=== PATIENT | male | born 1965 | race African-American/Black ===

== ENCOUNTER 2020-10-02 23:37 | Inpatient (IN) ==
[2020-10-03] MEDS ORDERED: levoFLOXacin/D5W 750 MG/150 ML BAG IV STA (00:02)
[2020-10-03] MEDS ORDERED: SODIUM CHLORIDE 0.9% 1000ML 500 ML IV ONE (00:02)
[2020-10-03] MEDS ORDERED: VANCOMYCIN HCL 2,000 MG in SODIUM CHLORIDE 0.9% 500 ML IV ONE ×2 (00:02→17:00)
[2020-10-03] MEDS ORDERED: VANCOMYCIN CONSULT ACTIVE PRN ×2 (00:02→16:22)
[2020-10-03] MEDS ORDERED: LORazepam 0.5 MG/1 ML VIAL IV STA (00:15)
[2020-10-03] MEDS ORDERED: ACETAMINOPHEN 1000 MG/100 ML IV IV STA (00:15)
--- NOTE | 2020-10-03 00:24 | Emergency Department Note ---
Impression & Plan Osteomyelitis, Finger pain, Failure of outpatient treatment ED Provider Note NAME: CARLOS COLUNGA AGE: 54 SEX: M : 1965 ARRIVES VIA: Walk-In INFORMANT: [Patient] ED PROVIDER(S): [Jeremiah Saunders MD] CHIEF COMPLAINT: Finger pain HISTORY OF PRESENT ILLNESS: The patient is a 54-year-old male who fractured his left ring finger. He had surgery on the finger in July, 2 months ago. The patient states that the finger has become swollen and painful. He states that he was started on clindamycin for presumed osteomyelitis. He has been on the clindamycin for about 1-1/2 weeks. He did see infectious disease today and he was felt to be failing outpatient treatment. IV antibiotics were suggested. He was sent here for hospitalization. The ID specialist suggested vancomycin and Levaquin. The patient does complain of swelling and pain, the pain is moderate in s everity. He is very anxious about maybe losing his finger. He has a history of posttraumatic stress disorder. Patient is not diabetic, he does have some renal disease but he states, they are just following his laboratory numbers. He has no lung issues or coronary issues. He is willing to stay in the hospital for IV antibiotic therapy. He understands that he may have to have another operation on the finger. REVIEW OF SYSTEMS: See HPI for pertinent positives and negatives. A total of ten systems were reviewed and were otherwise negative. PMHx/PSHx: See Below SOCIAL HISTORY: See Below. PHYSICAL EXAM: GENERAL: Patient is in no acute distress. HEENT: No acute trauma, normocephalic atraumatic, mucous membranes moist, no nasal congestion, no scleral icterus. NECK: No stridor, no adenopathy, no meningismus, trachea is midline. LUNGS: Clear to auscultation bilaterally, no wheeze, no rhonchi, breath sounds equal. HEART: Without murmurs gallops or rubs, regular rate and rhythm. ABDOMEN: Soft, nontender, bowel sounds positive, no hernias, no peritonitis. EXTREMITIES: No cyanosis. The patient does have swelling and discomfort about the left fourth finger. The finger is flexed at the IP joint. There is some warmth. No drainage. The fifth finger is also deformed and flexed at the IP joint. NEUROLOGIC: Oriented x 3, no acute motor or sensory deficits, no focal weakness. SKIN: No rash, no jaundice, no diaphoresis. DIFFERENTIAL DIAGNOSIS: Osteomyelitis, failed outpatient treatment, cellulitis, sepsis, bacteremia, neurovascular compromise, abscess, among others. EMERGENCY DEPARTMENT COURSE/PROCEDURES: MEDICAL DECISION MAKING: There is no leukocytosis. A mild anemia was noted. There is a normal platelet count. No renal failure. The potassium was slightly low at 3.1. Covid testing is pending. On exam, the patient was not toxic or febrile. His left fourth finger was erythematous, tender and swollen. The patient received IV Ativan for anxiety. He was given IV Tylenol for pain. He received IV saline and IV Levaquin. He was initially ordered for IV vancomycin however, after discussing things with the hospitalist, this medication was canceled as the patient has a history of renal disease. Daptomycin IV was ordered in place of the vancomycin. The patient is here for hospitalization and IV antibiotic therapy. He has failed outpatient management. He may require repeat operating room intervention. He understands the seriousness of this diagnosis. I spoke with the case management team, the on-call hospitalist was consulted. Past Med/Surg History Medical History CRI (chronic renal insufficiency) Hypercholesterolemia Hypertension Social History Smoking Status: Current every day smoker Tobacco Type: Cigarettes Feels Safe at Home: Yes Allergies Allergies Allergy/AdvReac Type Severity Reaction Status Date / Time aspirin Allergy Unknown Verified 10/03/20 00:46 Cephalosporins Allergy Rash Verified 10/03/20 00:46 codeine Allergy Rash Verified 10/03/20 00:46 Penicillins Allergy Rash Verified 10/03/20 00:46 Home Meds Home Medications Medication Instructions Recorded Confirmed albuterol sulfate 2 puff INHALATION Q4 PRN 10/03/20 10/03/20 aripiprazole 20 mg PO DAILY 10/03/20 10/03/20 atorvastatin 40 mg PO DAILY 10/03/20 10/03/20 benztropine 0.5 mg PO BID 10/03/20 10/03/20 doxazosin [Cardura] 1 mg PO DAILY 10/03/20 10/03/20 duloxetine [Cymbalta] 30 mg PO BID 10/03/20 10/03/20 epinephrine [EpiPen] 0.3 mg IM UD PRN 10/03/20 10/03/20 folic acid 1 mg PO DAILY 10/03/20 10/03/20 hydrochlorothiazide 25 mg PO DAILY 10/03/20 10/03/20 levetiracetam 750 mg PO BID 10/03/20 10/03/20 melatonin 1 mg PO HS 10/03/20 10/03/20 melatonin 5 mg PO HS 10/03/20 10/03/20 metoprolol succinate 25 mg PO DAILY 10/03/20 10/03/20 pantoprazole 40 mg PO DAILY 10/03/20 10/03/20 prazosin 5 mg PO DAILY 10/03/20 10/03/20 quetiapine 50 mg PO BID 10/03/20 10/03/20 tamsulosin 0.4 mg PO DAILY 10/03/20 10/03/20 topiramate 200 mg PO BID 10/03/20 10/03/20 warfarin 10 mg PO DAILY 10/03/20 10/03/20 Results & Data (ED) Vital Signs Vital Signs - 24 hr 10/02/20 23:57 Temperature 37 C Temperature Source Temporal Artery Scan Pulse Rate 89 Respiratory Rate 18 Respiratory Effort / Characteristics Non-Labored Spontaneous Respiratory Depth Normal Blood Pressure 172/89 H Blood Pressure Mean 116 Pulse Oximetry 100 Oxygen Delivery Method Room Air Sepsis Recent Fever Within 48 Hours Yes Sepsis New/Unexplained Change in Mental Status N/A Sepsis Action Taken by Nursing No Action Required Home Medications Current Medication List: was personally reviewed by me Laboratory Data Attestation: I reviewed the patient's lab results. Result diagrams: 10/03/20 00:27 10/03/20 00:27 Lab Results 10/03/20 10/03/20 10/03/20 Range/Units 00:27 00:27 00:27 WBC 7.23 (4.8-10.8) K/uL RBC 4.12 L (4.7-6.1) M/uL Hgb 12.5 L (14.0-18.0) g/dL Hct 35.6 L (42-52) % MCV 86.4 (80-100) fL MCH 30.3 (25-34) pg MCHC 35.1 (32-36) g/dL RDW Std Deviation 45.1 (36.4-46.3) fL RDW Coeff of Lexi 14.5 (11.5-14.5) % Plt Count 277 (130-400) K/uL MPV 9.6 (7.4-10.4) fL Immature Gran % (Auto) 0.1 % Neut % (Auto) 66.1 % Lymph % (Auto) 21.4 % [place] % (Auto) 9.3 % Eos % (Auto) 3.0 % Baso % (Auto) 0.1 % Neut # (Auto) 4.77 (1.4-6.5) K/uL Lymph # (Auto) 1.55 (1.2-3.4) K/uL [place] # (Auto) 0.67 H (0.11-0.59) K/uL Eos # (Auto) 0.22 (0-0.5) K/uL Baso # (Auto) 0.01 (0-0.2) K/uL Immature Gran # (Auto) 0.01 (0.00-0.02) K/uL ESR 12 (0-20) mm/hr Sodium 145 (136-145) mmol/L Potassium 3.1 L (3.5-5.1) mmol/L Chloride 114 H (98-107) mmol/L Carbon Dioxide 27 (21-32) mmol/L Anion Gap 4.0 (3-11) BUN 18 (7-18) mg/dl Creatinine 1.28 (0.6-1.4) mg/dl Est Cr Clr Drug Dosing 66.7 ml/min Est GFR ( Amer) 73.6 ml/min Est GFR (Non-Af Amer) 63.5 ml/min BUN/Creatinine Ratio 13.8 (10-20) Glucose 89 (70-99) mg/dl Calcium 8.9 (8.5-10.1) mg/dl COVID-19 Eval Order 10/03/20 Range/Units 00:31 WBC (4.8-10.8) K/uL RBC (4.7-6.1) M/uL Hgb (14.0-18.0) g/dL Hct (42-52) % MCV (80-100) fL MCH (25-34) pg MCHC (32-36) g/dL RDW Std Deviation (36.4-46.3) fL RDW Coeff of Lexi (11.5-14.5) % Plt Count (130-400) K/uL MPV (7.4-10.4) fL Immature Gran % (Auto) % Neut % (Auto) % Lymph % (Auto) % [place] % (Auto) % Eos % (Auto) % Baso % (Auto) % Neut # (Auto) (1.4-6.5) K/uL Lymph # (Auto) (1.2-3.4) K/uL [place] # (Auto) (0.11-0.59) K/uL Eos # (Auto) (0-0.5) K/uL Baso # (Auto) (0-0.2) K/uL Immature Gran # (Auto) (0.00-0.02) K/uL ESR (0-20) mm/hr Sodium (136-145) mmol/L Potassium (3.5-5.1) mmol/L Chloride (98-107) mmol/L Carbon Dioxide (21-32) mmol/L Anion Gap (3-11) BUN (7-18) mg/dl Creatinine (0.6-1.4) mg/dl Est Cr Clr Drug Dosing ml/min Est GFR ( Amer) ml/min Est GFR (Non-Af Amer) ml/min BUN/Creatinine Ratio (10-20) Glucose (70-99) mg/dl Calcium (8.5-10.1) mg/dl COVID-19 Eval Order Covid19 at [facility] Administered Medications Levofloxacin/Dextrose (Levaquin/D5w) 750 mg in 150 mls @ 100 mls/hr IV NOW STA Stop: 10/03/20 01:31 Last Admin: 10/03/20 00:51 Dose: 100 mls/hr Documented by: [id number] Miscellaneous Information (Vancomycin Consult Active) 1 ea N/A UD PRN PRN Reason: Consult Stop: 11/02/20 00:01 Last Admin: 10/03/20 00:55 Dose: 1 ea Documented by: [id number] Discontinued Medications Acetaminophen (Acetaminophen 1000 Mg/100 Ml Iv) 1,000 mg IV NOW STA Stop: 10/03/20 00:16 Last Admin: 10/03/20 00:26 Dose: 1,000 mg Documented by: [id number] Vancomycin HCl 2,000 mg/ (Sodium Chloride) 540 mls @ 200 mls/hr IV NOW ONE Stop: 10/03/20 02:43 Last Infusion: 10/03/20 00:38 Dose: 0 mls/hr Documented by: [id number] Admin: 10/03/20 00:26 Dose: 200 mls/hr Documented by: [id number] Sodium Chloride (Nss 1000ml) 500 mls @ 999 mls/hr IV .Q31M ONE Stop: 10/03/20 00:32 Last Admin: 10/03/20 00:27 Dose: 999 mls/hr Documented by: [id number] Lorazepam (Ativan) 0.5 mg in 1 mls @ 1 mls/min IV NOW STA Stop: 10/03/20 00:16 Last Admin: 10/03/20 00:26 Dose: 1 mls/min Documented by: [id number] Discharge Plan Visit Data Chief Complaint: Finger Pain Stated Complaint: LEFT HAND FINGER PAIN SWELLING S/P SURGERY ED Provider: Jeremiah Saunders Discharge Problem: Osteomyelitis, Finger pain, Failure of outpatient treatment Patient Disposition: Admitted As Inpatient Condition: Fair Forms Stand Alone Forms: My [facility] Prescriptions Prescriptions: No Action atorvastatin 40 mg tablet 40 mg PO DAILY RF: 0 doxazosin [Cardura] 1 mg tablet 1 mg PO DAILY RF: 0 pantoprazole 40 mg tablet,delayed release (DR/EC) 40 mg PO DAILY RF: 0 folic acid 1 mg tablet 1 mg PO DAILY RF: 0 aripiprazole 20 mg tablet 20 mg PO DAILY RF: 0 prazosin 5 mg capsule 5 mg PO DAILY RF: 0 levetiracetam 750 mg tablet 750 mg PO BID RF: 0 warfarin 10 mg tablet 10 mg PO DAILY RF: 0 tamsulosin 0.4 mg capsule 0.4 mg PO DAILY RF: 0 topiramate 200 mg tablet 200 mg PO BID RF: 0 hydrochlorothiazide 25 mg tablet 25 mg PO DAILY RF: 0 metoprolol succinate 25 mg tablet extended release 24 hr 25 mg PO DAILY RF: 0 albuterol sulfate 90 mcg/actuation HFA aerosol inhaler 2 puff INHALATION Q4 PRN (Reason: Wheezing) RF: 0 melatonin 1 mg Tablet 1 mg PO HS RF: 0 quetiapine 50 mg tablet 50 mg PO BID RF: 0 melatonin 5 mg Tablet 5 mg PO HS RF: 0 benztropine 0.5 mg tablet 0.5 mg PO BID RF: 0 epinephrine [EpiPen] 0.3 mg/0.3 mL Auto-Injector 0.3 mg IM UD PRN (Reason: Anaphylaxis) RF: 0 duloxetine [Cymbalta] 30 mg capsule,delayed release(DR/EC) 30 mg PO BID RF: 0 Referrals Referrals: Sacha Storm [Primary Care Provider] - Discharge Problem: Osteomyelitis Qualifiers: Osteomyelitis type: unspecified type Osteomyelitis location: hand Laterality: left Qualified Code(s): M86.9 - Osteomyelitis, unspecified Finger pain Qualifiers: Laterality: left Qualified Code(s): M79.645 - Pain in left finger(s)
[2020-10-03] MEDS ORDERED: DAPTOmycin 450 MG in SYRINGE 0 ML IV ONE (00:34)
[2020-10-03 00:38] LABS: Basophils # (auto) 0.01 K/uL (0-0.2); Basophils % (auto) 0.1 %; Eosinophils # (auto) 0.22 K/uL (0-0.5); Hematocrit (blood only) 35.6 % (42-52); Hemoglobin 12.5 g/dL (14.0-18.0); Immature Granulocytes # (auto) 0.01 K/uL (0.00-0.02); Immature Granulocytes % (auto) 0.1 %; Lymphocytes # (auto) 1.55 K/uL (1.2-3.4); Lymphocytes % (auto) 21.4 %; Mean Corpuscular Hemoglobin 30.3 pg (25-34); Mean Corpuscular Hgb Conc 35.1 g/dL (32-36); Mean Corpuscular Volume 86.4 fL (80-100); Mean Platelet Volume 9.6 fL (7.4-10.4); Monocytes # (auto) 0.67 K/uL (0.11-0.59); Monocytes % (auto) 9.3 %; Neutrophils # (auto) 4.77 K/uL (1.4-6.5); Neutrophils % (auto) 66.1 %; Platelet Count 277 K/uL (130-400); RDW Coefficient of Variation 14.5 % (11.5-14.5); RDW Standard Deviation 45.1 fL (36.4-46.3); Red Blood Count 4.12 M/uL (4.7-6.1); White Blood Count 7.23 K/uL (4.8-10.8)
[2020-10-03 01:04] LABS: BUN Creatinine Ratio 13.8 (10-20); Calcium 8.9 mg/dl (8.5-10.1); Creatinine Clr Calc Pharmacy 66.7 ml/min; Est GFR (African American) 73.6 ml/min; Est GFR (Non-African American) 63.5 ml/min; Potassium 3.1 mmol/L (3.5-5.1)
[2020-10-03 02:01] LABS: INR 1.1 (0.9-1.1); Partial Thromboplastin Ratio 0.9; Partial Thromboplastin Time 22.8 Seconds (21.0-31.0); Prothrombin Time 11.2 Seconds (9.0-12.0)
--- NOTE | 2020-10-03 02:07 | History & Physical Report ---
Date of Service October 03, 2020 Assessment & Plan (1) Osteomyelitis: Mr. Ram is a 54 yo gentleman who is admitted for failed outpatient management of suspected left ring finger infection suspicious for osteomyelitis. - patient afebrile, hemodynamically stable. WBC normal, blood cultures drawn. - ortho consult placed - I will order an Xray of the left finger in the AM - additional imaging per ortho (MRI) - continue IV levaquin and daptomycin (although renal function is acceptable for vanco, this will require q12 hour dosing in the future, while Dapto is once). - If osteomyelitis is confirmed, patient will likely need 6 weeks of IV antibiotics - given his history of IV drug abuse, he will not likely be a good candidate for a line - I suspect the best method would be to set him up with an outpatient infusion center (perhaps closer to his home) where he can commute to each day for IV abx (2) Hypertension: - continue home HCTZ and metoprolol (3) Hypercholesterolemia: - continue home atorvastatin (4) Seizure disorder: - continue home dose Keppra and Topamax (5) PTSD (post-traumatic stress disorder): - continue prazosin qhs (6) Protein C deficiency: - chronically anticoagulated on Warfarin (7) Hx of pulmonary embolus: - chronically anticoagulated on warfarin (8) RUDDY (generalized anxiety disorder): - continue home dose cymbalta (9) BPH (benign prostatic hyperplasia): - continue home flomax DVT ppx: On coumadin Dispo: Med surg Diet: Heart healthy Code: Full History of Present Illness Primary Care Provider: Sacha Storm Mr. Ram is a 54 yo M who was referred to the [facility] ED for failed outpatient management of an infection of the left ring finger. In July 2020 while in rehab for substance abuse (injection drug use, meth and cocaine), Mr. Ram slipped on the bathroom floor and broke his left ring finger in an attempt to brace his fall. He underwent surgical repair by Dr. Jacinto at [facility] on 07/13/20. He was later placed in a hard cast because his joint was exposed to too much mobility at this first post-operative visit. Two weeks ago, Mr. Ram noted increased swelling and discomfort of the finger - he was started on clindamycin 7-10 days ago for a wound infection. Despite being on the clinda, the finger has continued to remain swollen and painful. He has seen an ID specialist at [facility] who referred him here for Iv antibiotics due to a suspicion for osteomyelitis - he recommend Levaquin and Vancomycin. No records of imaging of the left ring finger from [facility] were received. Patient's is present at bedside and provides the following history: he has struggled with IV drug use for nearly 30 years. He has been talking about going back rehab in an effort to get clean. She can be reached at [phone]. He is a has follows with the [facility] system, but [facility]. He is a current tobacco smoker. In the ED, he was afebrile with a normal HR. His WBC was normal. Blood cultures were drawn. ESR not elevated. K low at 3.1. GFR at 73. He was started on IV Levaquin and Daptomycin. Allergies Allergy/AdvReac Type Severity Reaction Status Date / Time aspirin Allergy Unknown Verified 10/03/20 00:46 Cephalosporins Allergy Rash Verified 10/03/20 00:46 codeine Allergy Rash Verified 10/03/20 00:46 Penicillins Allergy Rash Verified 10/03/20 00:46 Home Medications Medication Instructions Recorded Confirmed Type albuterol sulfate 2 puff INHALATION Q4 PRN 10/03/20 10/03/20 History aripiprazole 20 mg PO DAILY 10/03/20 10/03/20 History atorvastatin 40 mg PO DAILY 10/03/20 10/03/20 History benztropine 0.5 mg PO BID 10/03/20 10/03/20 History doxazosin [Cardura] 1 mg PO DAILY 10/03/20 10/03/20 History duloxetine [Cymbalta] 30 mg PO BID 10/03/20 10/03/20 History epinephrine [EpiPen] 0.3 mg IM UD PRN 10/03/20 10/03/20 History folic acid 1 mg PO DAILY 10/03/20 10/03/20 History hydrochlorothiazide 25 mg PO DAILY 10/03/20 10/03/20 History levetiracetam 750 mg PO BID 10/03/20 10/03/20 History melatonin 1 mg PO HS 10/03/20 10/03/20 History melatonin 5 mg PO HS 10/03/20 10/03/20 History metoprolol succinate 25 mg PO DAILY 10/03/20 10/03/20 History pantoprazole 40 mg PO DAILY 10/03/20 10/03/20 History prazosin 5 mg PO DAILY 10/03/20 10/03/20 History quetiapine 50 mg PO BID 10/03/20 10/03/20 History tamsulosin 0.4 mg PO DAILY 10/03/20 10/03/20 History topiramate 200 mg PO BID 10/03/20 10/03/20 History warfarin 10 mg PO DAILY 10/03/20 10/03/20 History Past Med/Surg History Medical History CRI (chronic renal insufficiency) Hypercholesterolemia Hypertension Social History Smoking Status: Current every day smoker Tobacco Type: Cigarettes Cigarettes Per Day: 5; Second Hand Exposure: No; Do You Dip or Chew Tobacco: No; Tobacco Cessation Education Requested by Patient: No Hx Alcohol Use: No Hx Substance Use: Yes Prescribed Medications: Marijuana Non-Prescribed Medications: Crack / Cocaine and Methamphetamines Non-Prescribed Medications Comment: Cocaine 2018, Methamphetamine 1 week prior from 10/03/20 Last Used Substance Other:: 3 years ago Preferred Language: Italian Director Of Informatics Required: No Beliefs That Will Affect Care: None Current Living Situation: Spouse Current Living Situation Comment: Lives with at home Feels Safe at Home: Yes Safety Concerns: Feels Safe At This Time Assistive Devices: None Review of Systems Review of Systems: All systems reviewed & are unremarkable except as noted in HPI & below Physical Exam Constitutional: WD/WN, vitals as above no acute distress Eyes: + anicteric sclerae ENMT: external ear and nose normal, oropharynx normal Neck: normal visual inspection and trachea midline Respiratory: normal respiratory effort, lungs clear to auscultation no cough Cardiovascular: RRR, no murmur, no edema Heart Sounds: normal S1 and normal S2 Gastrointestinal (Abdomen): normal bowel sounds, soft, nontender, no hepatosplenomegaly Musculoskeletal: + left ring finger is swollen, not erythematous. Surgical incision present, No drainage. flexed at PIP joint Skin: no rashes, warm and dry Results & Data Results & Data ([facility]) Vital Signs (Past 12 Hours) Vital Signs Temp Pulse Pulse Resp BP BP Pulse Ox 10/03/20 01:57 95 H 18 149/75 H 99 10/03/20 01:24 99 H 18 155/89 H 99 10/02/20 23:57 37 C 89 18 172/89 H 100 Supervising Physician Co-Signing Physician Notes Attending addendum: I have physically seen this patient, have supervised the medical residents activities, and agree with the H&P unless as otherwise noted. Assessment and Plan: Left ring finger infection/osteomyelitis/failure of outpatient treatment- Referred to the ED by infectious disease Placed on vancomycin IV and Levaquin IV Consult orthopedic surgery N.p.o. after midnight Hypertension- Continue metoprolol Hold HCTZ Hypercholesterolemia- Continue atorvastatin Seizure disorder- Continue Keppra and Topamax PTSD/anxiety- Continue prazosin and Cymbalta History of pulmonary embolism- Hold warfarin overnight in anticipation of potential procedure Remaining orders and notations as noted Resident Activity Tracking Resident Involvement: Resident Care Provided Care Provided: Adult Hospital Medicine (1) Osteomyelitis Laterality: left Osteomyelitis location: hand Osteomyelitis type: unspecified type Qualified Code(s): M86.9 - Osteomyelitis, unspecified
[2020-10-03] MEDS ORDERED: MELATONIN 3 MG TAB PO PRN (02:28)
[2020-10-03] MEDS ORDERED: ONDANSETRON INJ 2 MG/ML 2 ML VIAL IV PRN (02:28)
[2020-10-03] MEDS ORDERED: ALBUTEROL HFA 8 GM INHALER INH PRN (02:28)
[2020-10-03] MEDS ORDERED: POLYETHYLENE (MIRALAX) 17 GM PACK PO PRN (02:28)
[2020-10-03] MEDS ORDERED: POTASSIUM CHLORIDE CRTAB 20 MEQ TABCR PO STA ×2 (02:31→09:24)
[2020-10-03] MEDS ORDERED: EPINEPHrine INJ 1 MG/ML AMP IM PRN (03:22)
--- NOTE | 2020-10-03 08:22 | Hospitalist Progress Note ---
Date of Service October 03, 2020 Assessment & Plan (1) Osteomyelitis: Patient is a 54 year old male with PMHx PTSD, Seizure Disorder, Protein C Deficiency on warfarin, RUDDY, BPH, Hypercholesterolemia, HTN, that presented as a transfer from [facility] for outpatient failure of treatment of L hand 4th digit cellulitis, now with suspected osteomyelitis. Osteomyelitis of L hand 4th digit -XR of hand and finger with lytic lesions concerning for and consistent with o steomyelitis -Started initially on IV Levaquin and Daptomycin on admission -Called and discussed with patient's ID Physician at [facility] (Dr. David ) who recommended switching patient to Vancomycin 15-20mg/kg trough in addition to Ceftriaxone 2g QD -Can also consider Telavancin and Ceftriaxone if will be covered -Recommended discontinuing Daptomycin as patient's CPK was elevated at 1237 from previous labs. -Ortho Consulted -No plan for surgical intervention at this time, rec continuing IV antibiotics -No need for MRI at this time -Will begin discussing in regards to discharge. As patient will unlikely be accepted to a SNF or similar facility primarily for treatment and PICC placement is less favorable due to hx of drug abuse, will likely need set up for daily MTU at [place] for treatment. -[place] would be if Vancomycin trough can be dosed at QD in addition to the Ceftriaxone QD dosing for 1 trip/day -If unable to dose for daily Vanco, will see if Telavancin is coverable. -Discussed with patient who feels that he would be able to make daily trips to MTU for treatment Protein C Deficiency -With history of PE -Chronically on Warfarin 10mg QD -INR today at 1.1 prior to warfarin administration -Will draw for INR in AM and adjust accordingly for INR goal 2-3 Seizure Disorder -Continue home Keppra and Topamax PTSD -Continue home Prazosin -Continue Abilify -Continue Seroquel HTN -Continue HCTZ and Metoprolol Hypercholesterolemia -Will hold Atorvastatin at this time due to elevated CPK RUDDY -Continue Cymbalta BPH -Continue Flomax Dispo: Med/Surg for IV antibiotics and discharge planning FEN: HH diet DVT: Warfarin, if unable to reach therapeutic states in the next 2-3 days will bridge with lovenox Code: Full (2) PTSD (post-traumatic stress disorder): (3) Protein C deficiency: (4) Hypertension: (5) Hypercholesterolemia: (6) Seizure disorder: (7) RUDDY (generalized anxiety disorder): (8) BPH (benign prostatic hyperplasia): Admission and Anticipated Discharge Date Admission Date: October 03, 2020 Supervising Physician Co-Signing Physician Notes I personally examined the patient and verified all richardson points of history and exam, discussed case, and agree with decision making with Dr Hoffmann. Sleeping/restingawakens. Denies any new or worse pain, but it seems like his finger feels about the same. Dr. Hoffmann has discussed the case with the patient's infectious disease doctor. Vitals noted, in general he is sleeping comfortably but easily awoken no distress. His finger is quite swollen a few sutures appear to be in place, there is no tracking erythema or expressible exudate. Finger osteomyelitiscontinue current antibiotics, work on discharge planning. Orthopedic and infectious disease input appreciated. Otherwise as above Subjective Patient evaluated at the bedside this AM. Patient noting that over all he was feeling okay, though was still experiencing pressure and pain in his L hand ring finger. He notes that he has had issues with it since breaking it and having it repaired 07/13/20. He agrees that he has been on clindamycin for the past 2 weeks with minimal improvements. Discussed with patient about drug use at which he adamantly denies any IV drug use. He does note that he has been using methamphetamines and cocaine for almost 24 years. States his last cocaine use was 3 years ago and last methamphetamine use 1 week ago. Patient denies any NVD, SOB, chest pain, fever, chills, abdominal pain. Called and discussed with patient's who agrees that she does not believe the patient utilizes IV drugs. She agrees that he is an avid user of cocaine and methamphetamines and has been to rehab multiple times, the most recent in August at the [facility]. Called and discussed in regards to treatment for patient with his Infectious Disease physician Dr. David ([facility]). Dr. David noted that he had been in discussions with the patient for possible placement at a SNF or similar facility as he would require IV antibiotics for 6-8 weeks for treatment of his osteomyelitis, but was hesitant to place a PICC due to patient's drug use history in addition to patient's uncertainty in regards to presenting to an MTU unit for administration of the antibiotic. Review of Systems Review of Systems: All systems reviewed & are unremarkable except as noted in Subjective Physical Exam Constitutional: WD/WN, vitals as above ENMT: external ear and nose normal, oropharynx normal Respiratory: normal respiratory effort, lungs clear to auscultation Cardiovascular: RRR, no murmur, no edema Gastrointestinal (Abdomen): normal bowel sounds, soft, nontender, no hepatosplenomegaly Musculoskeletal: L hand 4th digit moderately swollen at the middle to distal phalanx. Palpation of the finger illicits slight pain, deep per patient. No drainage notable. ROM limited due to recent repair and pinning. No tracking noted. Results & Data Results & Data ([facility]) Vital Signs (Past 12 Hours) Vital Signs Temp Pulse Pulse Resp BP BP Pulse Ox 10/03/20 07:26 36.5 C 75 18 153/101 H 100 10/03/20 02:25 36.4 C L 83 16 143/85 H 100 10/03/20 01:57 95 H 18 149/75 H 99 10/03/20 01:24 99 H 18 155/89 H 99 10/02/20 23:57 37 C 89 18 172/89 H 100 Resident Activity Tracking Resident Involvement: Resident Care Provided Care Provided: Adult Hospital Medicine (1) Osteomyelitis Laterality: left Osteomyelitis location: hand Osteomyelitis type: u nspecified type Qualified Code(s): M86.9 - Osteomyelitis, unspecified
--- NOTE | 2020-10-03 08:23 | XRay Report ---
Left fourth finger 3 VIEWS CLINICAL HISTORY: concern for osteomyelitis, left ring finger COMPARISON: None. DISCUSSION: There are postsurgical changes of a [id number] band arthrodesis of the proximal inte rphalangeal joint. There is pronounced overlying soft tissue swelling. There are bony erosive changes present, and osteomyelitis cannot be excluded. There is also a small bony erosion at the base of the proximal phalanx on the ulnar side. IMPRESSION: 1. Postsurgical changes of a proximal interphalangeal joint fusion with a [id number] suture. 2. Pronounced overlying soft tissue edema 3. Periostitis and bony erosive changes. This could be secondary to hardware loosening and abnormal m otion at the joint, or osteomyelitis. ACT 112: Negative or not required by law. Electronically signed by: Pavel Nevarez M.D. 10/03/2020 8:22 AM
[2020-10-03] MEDS: ARIPiprazole 10 MG TAB PO SCH (08:24)
[2020-10-03] MEDS: PANTOprazole 40 MG TAB PO SCH (08:24)
[2020-10-03] MEDS: ATORVASTATIN 40 MG TAB PO SCH (08:25)
[2020-10-03] MEDS: METOPROLOL SUCC 25MG EXT REL TAB PO SCH (08:25)
[2020-10-03] MEDS: TOPIRAMATE 100 MG TAB PO SCH ×2 (08:25→20:02)
[2020-10-03] MEDS: PRAZOSIN HCL 1 MG CAP PO SCH (08:25)
[2020-10-03] MEDS: levETIRAcetam 250 MG TAB PO SCH ×2 (08:26→20:01)
[2020-10-03] MEDS: TAMSULOSIN HCL 0.4 MG CAP PO SCH (08:26)
[2020-10-03] MEDS: QUEtiapine FUMARATE 25 MG TABLET PO SCH ×2 (08:26→20:01)
[2020-10-03] MEDS: DULoxetine HCL 30 MG CAP PO SCH ×2 (08:27→20:02)
[2020-10-03] MEDS: FOLIC ACID 1 MG TAB PO SCH (08:27)
[2020-10-03] MEDS: BENZTROPINE MESYLATE 0.5 MG TAB PO SCH ×2 (08:28→20:02)
[2020-10-03] MEDS: DOXAZOSIN MESYLATE 1 MG TAB PO SCH (08:28)
[2020-10-03] MEDS: ACETAMINOPHEN 325 MG TAB PO PRN (08:52)
[2020-10-03] MEDS: hydroCHLOROthiazide 25 MG TAB PO SCH (09:55)
--- NOTE | 2020-10-03 14:25 | Orthopedic Consultation ---
Date of Consultation October 03, 2020 Assessment & Plan (1) Osteomyelitis: Likely osteomyelitis of the middle phalanx of the left fourth finger. I have reviewed the x-rays, which shows the past ORIF of the middle phalanx along with a lytic lesion in the distal portion of the middle phalanx. I have spoken to Dr. Jacinto today. He has been in contact with Dr. David from infectious disease in [place]. Plans at this time will be nonoperative. With the lytic lesion in the middle phalanx it appears consistent with osteomyelitis. MRI not planned currently. Plan will be to treat osteomyelitis with IV antibiotics at this point in time. History of Present Illness Reason for Consultation: Left fourth finger osteomyelitis Attending Physician: Ac Ramos DO History of Present Illness Patient is a 54-year-old -[place] male who in July while at a drug and alcohol rehab facility, he ended up slipping and falling onto the floor. He apparently held his hand out to brace his fall and sustained a fracture of the middle phalanx of the fourth finger. Dr. Jacinto saw the patient and did an ORIF of the fourth finger fracture. From the history, he was seen early on in his postop phase and was found that he had too much joint range of motion of the operative finger and was put in a cast. He began noticing increased pain over time in that finger. After an examination it was felt that he possibly had infection and was started on clindamycin. The finger continued to swell and continue to be somewhat painful. He was seen by an infectious disease specialist and do boys and was ultimately referred here for further treatment. He was admitted by the hospitalist service and started on IV antibiotics. Currently the patient is sleeping and is difficult to arouse. He does answer some questions appropriately but quickly goes back to sleep. Allergies Allergy/AdvReac Type Severity Reaction Status Date / Time aspirin Allergy Unknown Verified 10/03/20 00:46 Cephalosporins Allergy Rash Verified 10/03/20 00:46 codeine Allergy Rash Verified 10/03/20 00:46 Penicillins Allergy Rash Verified 10/03/20 00:46 Home Medications Medication Instructions Recorded Confirmed Type albuterol sulfate 2 puff INHALATION Q4 PRN 10/03/20 10/03/20 History aripiprazole 20 mg PO DAILY 10/03/20 10/03/20 History atorvastatin 40 mg PO DAILY 10/03/20 10/03/20 History benztropine 0.5 mg PO BID 10/03/20 10/03/20 History doxazosin [Cardura] 1 mg PO DAILY 10/03/20 10/03/20 History duloxetine [Cymbalta] 30 mg PO BID 10/03/20 10/03/20 History epinephrine [EpiPen] 0.3 mg IM UD PRN 10/03/20 10/03/20 History folic acid 1 mg PO DAILY 10/03/20 10/03/20 History hydrochlorothiazide 25 mg PO DAILY 10/03/20 10/03/20 History levetiracetam 750 mg PO BID 10/03/20 10/03/20 History melatonin 1 mg PO HS 10/03/20 10/03/20 History melatonin 5 mg PO HS 10/03/20 10/03/20 History metoprolol succinate 25 mg PO DAILY 10/03/20 10/03/20 History pantoprazole 40 mg PO DAILY 10/03/20 10/03/20 History prazosin 5 mg PO DAILY 10/03/20 10/03/20 History quetiapine 50 mg PO BID 10/03/20 10/03/20 History tamsulosin 0.4 mg PO DAILY 10/03/20 10/03/20 History topiramate 200 mg PO BID 10/03/20 10/03/20 History warfarin 10 mg PO DAILY 10/03/20 10/03/20 History Patient History Medical History CRI (chronic renal insufficiency) Hypercholesterolemia Hypertension Social History Smoking Status: Current every day smoker Tobacco Type: Cigarettes Cigarettes Per Day: 5; Second Hand Exposure: No; Do You Dip or Chew Tobacco: No; Tobacco Cessation Education Requested by Patient: No Hx Alcohol Use: No Hx Substance Use: Yes Prescribed Medications: Marijuana Non-Prescribed Medications: Crack / Cocaine and Methamphetamines Non-Prescribed Medications Comment: Cocaine 2018, Methamphetamine 1 week prior from 10/03/20 Last Used Substance Other:: 3 years ago Preferred Language: Malaysian Communication Ability: Effective Clam Picker Required: No Beliefs That Will Affect Care: None Current Living Situation: Spouse Current Living Situation Comment: Lives with at home Feels Safe at Home: Yes Safety Concerns: Feels Safe At This Time Assistive Devices: None Physical Exam Physical Exam: On examination, his left fourth finger is moderately swollen at the middle phalanx. I can palpate the finger at this time which causes him some discomfort. There is no drainage noted at this time. The finger does not feel overtly hot. Capillary refill is less than 2 seconds. Passive range of motion of the MP joint does not appear to be bothersome. He does have some limited PIP joint flexion secondary to swelling but does not seem to be painful. Results & Data ([facility]) Vital Signs (Past 12 Hours) Vital Signs Temp Pulse Resp BP Pulse Ox 10/03/20 07:26 36.5 C 75 18 153/101 H 100 10/03/20 02:25 36.4 C L 83 16 143/85 H 100 Diagnostic Findings Laboratory Results WBC 7.23 K/uL (4.8-10.8) 10/03/20 00:27 RBC 4.12 M/uL (4.7-6.1) L 10/03/20 00:27 Hgb 12.5 g/dL (14.0-18.0) L 10/03/20 00:27 Hct 35.6 % (42-52) L 10/03/20 00:27 MCV 86.4 fL (80-100) 10/03/20 00:27 MCH 30.3 pg (25-34) 10/03/20 00:27 MCHC 35.1 g/dL (32-36) 10/03/20 00:27 RDW Std Deviation 45.1 fL (36.4-46.3) 10/03/20 00:27 RDW Coeff of Lexi 14.5 % (11.5-14.5) 10/03/20 00:27 Plt Count 277 K/uL (130-400) 10/03/20 00:27 MPV 9.6 fL (7.4-10.4) 10/03/20 00:27 Immature Gran % (Auto) 0.1 % 10/03/20 00:27 Neut % (Auto) 66.1 % 10/03/20 00:27 Lymph % (Auto) 21.4 % 10/03/20 00:27 [place] % (Auto) 9.3 % 10/03/20 00:27 Eos % (Auto) 3.0 % 10/03/20 00:27 Baso % (Auto) 0.1 % 10/03/20 00:27 Neut # (Auto) 4.77 K/uL (1.4-6.5) 10/03/20 00: Lymph # (Auto) 1.55 K/uL (1.2-3.4) 10/03/20 00:27 [place] # (Auto) 0.67 K/uL (0.11-0.59) H 10/03/20 00:27 Eos # (Auto) 0.22 K/uL (0-0.5) 10/03/20 00: Baso # (Auto) 0.01 K/uL (0-0.2) 10/03/20 00:27 Immature Gran # (Auto) 0.01 K/uL (0.00-0.02) 10/03/20 00: ESR 12 mm/hr (0-20) 10/03/20 00: PT 11.2 Seconds (9.0-12.0) 10/03/20 00: INR 1.1 (0.9-1.1) 10/03/20 00: APTT 22.8 Seconds (21.0-31.0) 10/03/20 00: PTT Ratio 0.9 10/03/20 00: Sodium 145 mmol/L (136-145) 10/03/20 00: Potassium 3.1 mmol/L (3.5-5.1) L 10/03/20 00: Chloride 114 mmol/L (98-107) H 10/03/20 00: Carbon Dioxide 27 mmol/L (21-32) 10/03/20 00: Anion Gap 4.0 (3-11) 10/03/20 00: BUN 18 mg/dl (7-18) 10/03/20 00: Creatinine 1.28 mg/dl (0.6-1.4) 10/03/20 00: Est Cr Clr Drug Dosing 66.7 ml/min 10/03/20 00:27 Est GFR ( Amer) 73.6 ml/min 10/03/20 00:27 Est GFR (Non-Af Amer) 63.5 ml/min 10/03/20 00:27 BUN/Creatinine Ratio 13.8 (10-20) 10/03/20 00:27 Glucose 89 mg/dl (70-99) 10/03/20 00:27 Calcium 8.9 mg/dl (8.5-10.1) 10/03/20 00:27 COVID-19 Eval [address] Covid19 at [facility] 10/03/20 00:31 SARS-CoV-2 (PCR) NEGATIVE (Negative) 10/03/20 00:31 Hepatitis C Ab Screen Neg (Neg) 10/03/20 00:27 Impressions Finger X-Ray 10/03/20 03:04 Left fourth finger 3 VIEWS CLINICAL HISTORY: concern for osteomyelitis, left ring finger COMPARISON: None. DISCUSSION: There are postsurgical changes of a rgksqd-[id number]-qweia band arthrodesis of the proximal interphalangeal joint. There is pronounced overlying soft tissue swelling. There are bony erosive changes present, and osteomyelitis canno t be excluded. There is also a small bony erosion at the base of the proximal phalanx on the ulnar side. IMPRESSION: 1. Postsurgical changes of a proximal interphalangeal joint fusion with a figure -of-eight suture. 2. Pronounced overlying soft tissue edema 3. Periostitis and bony erosive changes. This could be secondary to hardware loosening and abnormal motion at the joint, or osteomyelitis. ACT 112: Negative or not required by law. Electronically signed by: Pavel Nevarez M.D. 10/03/2020 8:22 AM (1) Osteomyelitis Laterality: left Osteomyelitis location: hand Osteomyelitis type: unspecified type Qualified Code(s): M86.9 - Osteomyelitis, unspecified
[2020-10-03] MEDS: WARFARIN SOD 10 MG TAB PO SCH (16:08)
[2020-10-03] MEDS ORDERED: CEPHALEXIN 250 MG/5 ML PO ONE (16:19)
[2020-10-03] MEDS ORDERED: DAPTOmycin 450 MG in SYRINGE 0 ML IV SCH (20:00)
[2020-10-03 21:24] LABS: Amphetamines+Metham, Urine Pos (Neg); Barbiturates, Urine Neg (Neg); Benzodiazepine, Urine Neg (Neg); Cocaine, Urine Neg (Neg); MDMA (Ecstacy), Urine Neg (Neg); Methadone, Urine Neg (Neg); Opiate, Urine Neg (Neg); Phencyclidine, Urine Neg (Neg)
--- NOTE | 2020-10-03 21:26 | Billing Data ---
Date of Service October 03, 2020 Coding Level of Care Code 68058 Initial Inpt Care Lvl 3
[2020-10-03] MEDS ORDERED: levoFLOXacin/D5W 500 MG/100 ML BAG IV SCH (22:00)
[2020-10-04] MEDS: VANCOMYCIN HCL 1,250 MG in SODIUM CHLORIDE 0.9% 250 ML IV SCH ×2 (04:14→19:18)
[2020-10-04 06:23] LABS: Basophils # (auto) 0.01 K/uL (0-0.2); Basophils % (auto) 0.2 %; Eosinophils # (auto) 0.22 K/uL (0-0.5); Eosinophils % (auto) 4.3 %; Hematocrit (blood only) 36.6 % (42-52); Hemoglobin 12.4 g/dL (14.0-18.0); Immature Granulocytes # (auto) 0.01 K/uL (0.00-0.02); Immature Granulocytes % (auto) 0.2 %; Lymphocytes # (auto) 1.37 K/uL (1.2-3.4); Lymphocytes % (auto) 26.7 %; Mean Corpuscular Hemoglobin 30.4 pg (25-34); Mean Corpuscular Hgb Conc 33.9 g/dL (32-36); Mean Corpuscular Volume 89.7 fL (80-100); Mean Platelet Volume 9.7 fL (7.4-10.4); Monocytes # (auto) 0.53 K/uL (0.11-0.59); Monocytes % (auto) 10.3 %; Neutrophils % (auto) 58.3 %; Platelet Count 277 K/uL (130-400); RDW Coefficient of Variation 14.7 % (11.5-14.5); RDW Standard Deviation 48.1 fL (36.4-46.3); Red Blood Count 4.08 M/uL (4.7-6.1); White Blood Count 5.14 K/uL (4.8-10.8)
[2020-10-04 06:34] LABS: INR 1.2 (0.9-1.1); Prothrombin Time 11.7 Seconds (9.0-12.0)
[2020-10-04 07:04] LABS: BUN Creatinine Ratio 12.5 (10-20); Calcium 8.4 mg/dl (8.5-10.1); Creatinine Clr Calc Pharmacy 66.2 ml/min; Est GFR (African American) 72.9 ml/min; Est GFR (Non-African American) 62.9 ml/min; Potassium 3.7 mmol/L (3.5-5.1)
--- NOTE | 2020-10-04 07:09 | Hospitalist Progress Note ---
Date of Service October 04, 2020 Assessment & Plan (1) Osteomyelitis: Patient is a 54 year old male with PMHx PTSD, Seizure Disorder, Protein C Deficiency on warfarin, RUDDY, BPH, Hypercholesterolemia, HTN, that presented as a transfer from [facility] for outpatient failure of treatment of L hand 4th digit cellulitis, now with suspected osteomyelitis. Osteomyelitis of L hand 4th digit -XR of hand and finger with lytic lesions concerning for and consistent with o steomyelitis -Started initially on IV Levaquin and Daptomycin on admission -Called and discussed with patient's ID Physician at [place] (Dr. David ) who recommended switching patient to Vancomycin 15-20 trough in addition to Ceftriaxone 2g QD. Further recommendations from Dr. David as below which he recommended upon discharge: -Continue Vancomycin 15-20 trough, QD vs q12h dosed per pharmacy -Continue Rocephin 2g daily -Continue IV antibiotics for 6 total weeks, starting from admission of 10/03/20 -Start Keflex 500mg PO q6h upon completion of 6 weeks of IV antibiotics, discontinue pending discussion with ID Dr. David -Weekly CBC, CMP, Vancomycin trough -Follow up with Dr. David in 2 weeks after discharge -Can also consider Telavancin and Ceftriaxone if will be covered -Dr. David will assist with determining appropriate dosing should Telavancin be used. -Recommended discontinuing Daptomycin as patient's CPK was elevated at 1237 from previous labs. -Ortho Consulted -No plan for surgical intervention at this time, rec continuing IV antibiotics -No need for MRI at this time -Will begin discussing in regards to discharge. As patient will unlikely be accepted to a SNF or similar facility primarily for treatment and PICC placement is less favorable due to hx of drug abuse, will likely need set up for daily MTU at [place] for treatment. -[place] would be if Vancomycin trough can be dosed at QD in addition to the Ceftriaxone QD dosing for 1 trip/day -If unable to dose for daily Vanco, will see if Telavancin is coverable. -Discussed with patient who feels that he would be able to make daily trips to [facility] for treatment -Will attempt to find placement with [facility], case management assisting Protein C Deficiency -With history of PE -Chronically on Warfarin 10mg QD -INR today at 1.3 -Will draw for INR in AM and adjust accordingly for INR goal 2-3 Seizure Disorder -Continue home Keppra and Topamax PTSD -Continue home Prazosin -Continue Abilify -Continue Seroquel HTN -Continue HCTZ and Metoprolol Hypercholesterolemia -Will hold Atorvastatin at this time due to elevated CPK RUDDY -Continue Cymbalta BPH -Continue Flomax Dispo: Med/Surg for IV antibiotics and discharge planning FEN: HH diet DVT: Warfarin, if unable to reach therapeutic states in the next 2-3 days will bridge with lovenox Code: Full Admission and Anticipated Discharge Date Admission Date: October 03, 2020 Supervising Physician Co-Signing Physician Notes I personally examined the patient and verified all richardson points of history and exam, discussed case, and agree with decision making with Dr Hoffmann. Pain reasonable. Notes he would like placement for the 6 weeks of antibiotics. Case management has been working on different options. Vitals noted, no distress. His finger is quite swollen a few sutures appear to be in place, there is no tracking erythema or expressible exudate. Finger osteomyelitiscontinue IV antibiotics, case management is working on discharge planning. Orthopedic and infectious disease input appreciated. Otherwise as above Subjective Patient noting minimal change in regards to the pain in his L hand 4th digit. He continues to deny any fever, chills, SOB, chest pain, abdominal pain. States he would be agreeable to both SNF/Rehab placement vs daily transport to [facility] for treatment. Review of Systems Review of Systems: All systems reviewed & are unremarkable except as noted in Subjective Physical Exam Constitutional: WD/WN, vitals as above ENMT: external ear and nose normal, oropharynx normal Respiratory: normal respiratory effort, lungs clear to auscultation Cardiovascular: RRR, no murmur, no edema Gastrointestinal (Abdomen): normal bowel sounds, soft, nontender, no hepatosplenomegaly Musculoskeletal: L hand 4th digit moderately swollen at the middle to distal phalanx. Palpation of the finger illicit slight pain, deep per patient. No drainage notable. ROM limited due to recent repair and pinning. No tracking noted. Results & Data Results & Data ([facility]) Vital Signs (Past 12 Hours) Vital Signs Temp Pulse Resp BP Pulse Ox 10/03/20 23:56 36.5 C 71 20 142/72 H 99 Resident Activity Tracking Resident Involvement: Resident Care Provided Care Provided: Adult Hospital Medicine (1) Osteomyelitis Laterality: left Osteomyelitis location: hand Osteomyelitis type: unspecified type Qualified Code(s): M86.9 - Osteomyelitis, unspecified
[2020-10-04] MEDS: ACETAMINOPHEN 325 MG TAB PO PRN (07:50)
[2020-10-04] MEDS: DULoxetine HCL 30 MG CAP PO SCH ×2 (08:51→20:53)
[2020-10-04] MEDS: BENZTROPINE MESYLATE 0.5 MG TAB PO SCH ×2 (08:51→20:54)
[2020-10-04] MEDS: PRAZOSIN HCL 1 MG CAP PO SCH (08:51)
[2020-10-04] MEDS: DOXAZOSIN MESYLATE 1 MG TAB PO SCH (08:52)
[2020-10-04] MEDS: METOPROLOL SUCC 25MG EXT REL TAB PO SCH (08:52)
[2020-10-04] MEDS: levETIRAcetam 250 MG TAB PO SCH ×2 (08:52→21:15)
[2020-10-04] MEDS: TOPIRAMATE 100 MG TAB PO SCH ×2 (08:52→20:52)
[2020-10-04] MEDS: TAMSULOSIN HCL 0.4 MG CAP PO SCH (08:52)
[2020-10-04] MEDS: QUEtiapine FUMARATE 25 MG TABLET PO SCH ×2 (08:52→20:52)
[2020-10-04] MEDS: hydroCHLOROthiazide 25 MG TAB PO SCH (08:53)
[2020-10-04] MEDS: PANTOprazole 40 MG TAB PO SCH (08:53)
[2020-10-04] MEDS: ARIPiprazole 10 MG TAB PO SCH (08:54)
[2020-10-04] MEDS: FOLIC ACID 1 MG TAB PO SCH (08:54)
--- NOTE | 2020-10-04 12:48 | Orthopedic Progress Note ---
Date of Service October 04, 2020 Assessment & Plan (1) Osteomyelitis: Osteomyelitis left 4th middle phalanx post ORIF of Middle phalanx No op treatment at this time per Dr Jacinto. Continue IV antibx. Planning for outpt IV antibx. Admission and Anticipated Discharge Date Admission Date: October 03, 2020 Subjective Pt sleeping upon arrival into room. Easily awoken. No changes overnight. No new complainst or questions. Physical Exam Physical Exam: No changes with finger exam. Swelling continues with tenderness over the middle phalanx. No drainage noted. Results & Data ([facility]) Vital Signs (Past 12 Hours) Vital Signs Temp Pulse Resp BP Pulse Ox 10/04/20 07:40 36.8 C 78 20 154/75 H 98 (1) Osteomyelitis Laterality: left Osteomyelitis location: hand Osteomyelitis type: unspecified type Qualified Code(s): M86.9 - Osteomyelitis, unspecified
--- NOTE | 2020-10-04 16:57 | Progress Notes ---
DATE OF SERVICE: 10/04/2020 SUBJECTIVE: Nakul is seen at the bedside today. He verbalizes no new complaints. He notes appropriate amount of pain in the finger. OBJECTIVE: Left ring finger examination does show moderate swelling. He has no sinus tract. He has no drainage, no streaking erythema. He has supple motion of the MP joint. ASSESSMENT: 1. Status post left ring finger proximal interphalangeal arthrodesis. 2. Osteomyelitis of middle phalanx. PLAN: At this point in time, continue antibiotics intravenously as he has failed outpatient treatment. I do not see surgical indications at this point in time as we would like to retain the hardware if possible to allow for fusion. Dr. David from [facility] has been involved in his care with infectious disease. He is available for a telephone consultation with any questions. His recommendations are : vancomycin with pharmacy to target dose of a trough of 15 to 20. He recommended giving a single dose of Keflex 50 mg and if no allergic reaction occurs in 2 hours, then begin ceftriaxone 2 mg daily. He can be reached at area code [phone] if necessary. We will continue to follow intermittently from an orthopedic standpoint. Job ID: [id number] [facility]
[2020-10-04] MEDS: WARFARIN SOD 10 MG TAB PO SCH (19:17)
--- NOTE | 2020-10-04 19:57 | Billing Data ---
Date of Service October 04, 2020 Coding Level of Care Code 26446 Subseq Hosp Care Lvl 3
[2020-10-04] MEDS: cefTRIAXone SODIUM 2,000 MG in DEXTROSE 5% 50 ML IV SCH (20:53)
[2020-10-05] MEDS ORDERED: VANCOMYCIN TROUGH ONE (04:30)
[2020-10-05 04:46] LABS: INR 1.3 (0.9-1.1); Prothrombin Time 12.6 Seconds (9.0-12.0)
[2020-10-05] MEDS: VANCOMYCIN HCL 1,250 MG in SODIUM CHLORIDE 0.9% 250 ML IV SCH (05:01)
[2020-10-05] MEDS: DOXAZOSIN MESYLATE 1 MG TAB PO SCH (09:24)
[2020-10-05] MEDS: ARIPiprazole 10 MG TAB PO SCH (09:24)
[2020-10-05] MEDS: BENZTROPINE MESYLATE 0.5 MG TAB PO SCH ×2 (09:24→21:39)
[2020-10-05] MEDS: DULoxetine HCL 30 MG CAP PO SCH ×2 (09:25→21:39)
[2020-10-05] MEDS: FOLIC ACID 1 MG TAB PO SCH (09:25)
[2020-10-05] MEDS: levETIRAcetam 250 MG TAB PO SCH ×2 (09:25→21:40)
[2020-10-05] MEDS: METOPROLOL SUCC 25MG EXT REL TAB PO SCH (09:25)
[2020-10-05] MEDS: hydroCHLOROthiazide 25 MG TAB PO SCH (09:25)
[2020-10-05] MEDS: PRAZOSIN HCL 1 MG CAP PO SCH (09:26)
[2020-10-05] MEDS: PANTOprazole 40 MG TAB PO SCH (09:26)
[2020-10-05] MEDS: QUEtiapine FUMARATE 25 MG TABLET PO SCH ×2 (09:26→21:39)
[2020-10-05] MEDS: TAMSULOSIN HCL 0.4 MG CAP PO SCH (09:27)
[2020-10-05] MEDS: TOPIRAMATE 100 MG TAB PO SCH ×2 (09:27→21:39)
--- NOTE | 2020-10-05 12:53 | Hospitalist Progress Note ---
Date of Service October 05, 2020 Assessment & Plan (1) Osteomyelitis: Nakul Ram is a 54 year old male with PMHx PTSD, Seizure Disorder, Protein C Deficiency on warfarin, RUDDY, BPH, Hypercholesterolemia, HTN, that presented as a transfer from [facility] for outpatient failure of treatment of L hand 4th digit cellulitis, now with osteomyelitis. Osteomyelitis of L hand 4th digit: -XR of hand and finger with lytic lesions concerning for and consistent with osteomyelitis -Started initially on IV Levaquin and Daptomycin on admission -Called and discussed with patient's ID Physician at [place] (Dr. David: [phone]) who recommended switching patient to Vancomycin 15-20 trough in addition to Ceftriaxone 2g QD. Further recommendations from Dr. David as below which he recommended upon discharge: -Continue Vancomycin with goal of 15-20 trough -Continue Rocephin 2g daily -Continue IV antibiotics for 6 total weeks, starting from admission of 10/03/20 -Start Keflex 500mg PO q6h upon completion of 6 weeks of IV antibiotics, discontinue pending discussion with ID Dr. David -Weekly CBC, CMP, Vancomycin trough -Follow up with Dr. David in 2 weeks after discharge -Ortho Consulted -No plan for surgical intervention at this time, rec continuing IV antibiotics -Case management assisting with [place] services for continued infusions -will start topical voltaren for continued abdominal pain Protein C Deficiency: -With history of PE -Chronically on Warfarin 10mg QD -INR today at 1.3 -gave additional 2.5mg today, recheck in AM Seizure Disorder: -Continue home Keppra and Topamax PTSD: -Continue home Prazosin -Continue Abilify -Continue Seroquel HTN: -Continue HCTZ and Metoprolol Hypercholesterolemia: -Will hold Atorvastatin at this time due to elevated CPK RUDDY: -Continue Cymbalta BPH: -Continue Flomax Admission and Anticipated Discharge Date Admission Date: October 03, 2020 Supervising Physician Co-Signing Physician Notes I personally examined the patient and verified all richardson points of history and exam, discussed case, and agree with decision making with Dr Perez. Finger hurting a bit more. No other new findings otherwise. Case management working on disposition options. Vitals noted, no distress. His finger is quite swollen a few sutures appear to be in place, there is no tracking erythema or expressible exudate. Essentially examines identical to before although may be a little bit more tenderbut certainly no new erythema, no worsening edema, no fluctuance Finger osteomyelitiscontinue IV antibiotics, case management is working on discharge planning. Orthopedic and infectious disease input appreciated. Worsening and pain seems to be arthritic/inflammatory in nature, but not worse infection. 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 To that end we will try to institute what would hopefully be a plausible chronic management planinitiate diclofenac gel. Otherwise as above Subjective Patient noting minimal change in regards to the pain in his L hand 4th digit, feels like it has not improved as much as he was hoping for it to at this point. He continues to deny any fever, chills, SOB, chest pain, abdominal pain. Review of Systems Review of Systems: All systems reviewed & are unremarkable except as noted in Subjective Physical Exam Constitutional: WD/WN, vitals as above Eyes: PERRL, conjunctivae normal, anicteric sclerae Respiratory: normal respiratory effort, lungs clear to auscultation Auscultation: no crackles, no rales, no rhonchi and no wheezes Cardiovascular: Rate/Rhythm: regular rate and regular rhythm Heart Sounds: no gallop, no murmur and no cardiac rub Vessels: normal peripheral pulses; no JVD Extremities: no edema Gastrointestinal (Abdomen): Inspection/Auscultation: normal bowel sounds; abdomen not distended Percussion/Palpation: abdomen soft; abdomen nontender and no guarding Skin: L hand 4th digit moderately swollen at the middle to distal phalanx. Minimally tender to palpation. No drainage notable. ROM limited due to recent repair and pinning. No tracking noted. Neurologic: PERRL, EOMI, accommodation nl, no face palsy, no dysarthria CN's II-XI intact bilaterally and moves all extremities Psychiatric: Orientation: alert and oriented x 3 Results & Data Results & Data ([facility]) Vital Signs (Past 12 Hours) Vital Signs Temp Pulse Resp BP Pulse Ox 10/05/20 07:21 36.5 C 74 16 145/74 H 100 Laboratory Results 10/05/20 10/05/20 10/05/20 Range/Units 04:19 04:19 04:19 PT 12.6 H (9.0-12.0) Seconds INR 1.3 H (0.9-1.1) Creatinine 1.40 (0.6-1.4) mg/dl Est Cr Clr Drug Dosing 61.0 ml/min Est GFR ( Amer) 66.0 ml/min Est GFR (Non-Af Amer) 57.0 ml/min Vancomycin Trough 19.0 (See Comment) mcg/ml Medications Administered Current Inpatient Medications Acetaminophen (Acetaminophen 325 Mg Tab) 650 mg PO Q4H PRN PRN Reason: Pain or Fever Stop: 11/02/20 02:27 Last Admin: 10/04/20 07:50 Dose: 650 mg Documented by: Albuterol (Albuterol Hfa 8 Gm Inhaler) 2 puffs INH Q4 PRN PRN Reason: Wheezing Stop: 11/02/20 02:27 Aripiprazole (Aripiprazole 10 Mg Tab) 20 mg PO DAILY [facility] Stop: 11/02/20 08:59 Last Admin: 10/05/20 09:24 Dose: 20 mg Documented by: Atorvastatin Calcium (Atorvastatin 40 Mg Tab) 40 mg PO QAM [facility] Stop: 11/02/20 08:59 Last Admin: 10/03/20 08:25 Dose: 40 mg Documented by: Benztropine Mesylate (Benztropine Mesylate 0.5 Mg Tab) 0.5 mg PO BID [facility] Stop: 11/02/20 08:59 Last Admin: 10/05/20 09:24 Dose: 0.5 mg Documented by: Diclofenac Sodium (Diclofenac Sod 1% Gel 100 Gm Tube) 2 gm EXT QID [facility] Stop: 11/04/20 12:59 Doxazosin Mesylate (Doxazosin Mesylate 1 Mg Tab) 1 mg PO DAILY [facility] Stop: 11/02/20 08:59 Last Admin: 10/05/20 09:24 Dose: 1 mg Documented by: Duloxetine HCl (Duloxetine Hcl 30 Mg Cap) 30 mg PO BID [facility] Stop: 11/02/20 08:59 Last Admin: 10/05/20 09:25 Dose: 30 mg Documented by: Epinephrine HCl (Epinephrine Inj 1 Mg/Ml Amp) 0.3 mg IM UD PRN PRN Reason: Anaphylaxis Stop: 11/02/20 03:21 Folic Acid (Folic Acid 1 Mg Tab) 1 mg PO DAILY [facility] Stop: 11/02/20 08:59 Last Admin: 10/05/20 09:25 Dose: 1 mg Documented by: Hydrochlorothiazide (Hydrochlorothiazide 25 Mg Tab) 25 mg PO DAILY [facility] Stop: 11/02/20 08:59 Last Admin: 10/05/20 09:25 Dose: 25 mg Documented by: Ceftriaxone Sodium 2,000 mg/ (Dextrose) 70 mls @ 140 mls/hr IV Q24H [facility] Stop: 11/14/20 18:59 Last Infusion: 10/04/20 21:35 Dose: Infused Documented by: Vancomycin HCl 1,000 mg/ (Sodium Chloride) 270 mls @ 200 mls/hr IV Q12H [facility]; Protocol Stop: 11/16/20 16:59 Levetiracetam (Levetiracetam 250 Mg Tab) 750 mg PO BID [facility] Stop: 11/02/20 08:59 Last Admin: 10/05/20 09:25 Dose: 750 mg Documented by: Melatonin (Melatonin 3 Mg Tab) 3 mg PO HS PRN PRN Reason: Sleep Stop: 11/02/20 02:27 Metoprolol Succinate (Metoprolol Succ 25mg Ext Rel Tab) 25 mg PO DAILY [facility] Stop: 11/02/20 08:59 Last Admin: 10/05/20 09:25 Dose: 25 mg Documented by: Miscellaneous Information (Vancomycin Consult Active) 1 ea N/A UD PRN PRN Reason: Consult Stop: 11/02/20 16:21 Ondansetron HCl (Ondansetron Inj 2 Mg/Ml 2 Ml Vial) 4 mg IV Q6H PRN PRN Reason: Nausea Stop: 11/02/20 02:27 Pantoprazole Sodium (Pantoprazole 40 Mg Tab) 40 mg PO DAILY [facility] Stop: 11/02/20 08:59 Last Admin: 10/05/20 09:26 Dose: 40 mg Documented by: Polyethylene Glycol (Polyethylene (Miralax) 17 Gm Pack) 17 gm PO DAILY PRN PRN Reason: Constipation Stop: 11/02/20 02:27 Prazosin HCl (Prazosin Hcl 1 Mg Cap) 5 mg PO DAILY [facility] Stop: 11/02/20 08:59 Last Admin: 10/05/20 09:26 Dose: 5 mg Documented by: Quetiapine Fumarate (Quetiapine Fumarate 25 Mg Tablet) 50 mg PO BID [facility] Stop: 11/02/20 08:59 Last Admin: 10/05/20 09:26 Dose: 50 mg Documented by: Tamsulosin HCl (Tamsulosin Hcl 0.4 Mg Cap) 0.4 mg PO DAILY [facility] Stop: 11/02/20 08:59 Last Admin: 10/05/20 09:27 Dose: 0.4 mg Documented by: Topiramate (Topiramate 100 Mg Tab) 200 mg PO BID [facility] Stop: 11/02/20 08:59 Last Admin: 10/05/20 09:27 Dose: 200 mg Documented by: Warfarin Sodium (Warfarin Sod 10 Mg Tab) 10 mg PO DAILY@1600 [facility] Stop: 11/02/20 15:59 Last Admin: 10/04/20 19:17 Dose: 10 mg Documented by: Resident Activity Tracking Resident Involvement: Resident Care Provided Care Provided: Adult Hospital Medicine (1) Osteomyelitis Laterality: left Osteomyelitis location: hand Osteomyelitis type: unspecified type Qualified Code(s): M86.9 - Osteomyelitis, unspecified
[2020-10-05] MEDS: DICLOFENAC SOD 1% GEL 100 GM TUBE EXT SCH ×3 (14:56→21:40)
[2020-10-05] MEDS ORDERED: WARFARIN SOD 2.5 MG TAB PO ONE (16:00)
[2020-10-05] MEDS: WARFARIN SOD 10 MG TAB PO SCH (16:05)
[2020-10-05] MEDS: VANCOMYCIN HCL 1,000 MG in SODIUM CHLORIDE 0.9% 250 ML IV SCH (16:11)
[2020-10-05] MEDS: cefTRIAXone SODIUM 2,000 MG in DEXTROSE 5% 50 ML IV SCH (18:07)
--- NOTE | 2020-10-05 18:41 | Billing Data ---
Date of Service October 05, 2020 Coding Level of Care Code 50925 Subseq Hosp Care Lvl 3
[2020-10-06] MEDS: VANCOMYCIN HCL 1,000 MG in SODIUM CHLORIDE 0.9% 250 ML IV SCH ×2 (05:39→17:35)
[2020-10-06 06:12] LABS: Basophils # (auto) 0.01 K/uL (0-0.2); Basophils % (auto) 0.2 %; Eosinophils # (auto) 0.21 K/uL (0-0.5); Eosinophils % (auto) 4.8 %; Hematocrit (blood only) 39.4 % (42-52); Hemoglobin 13.6 g/dL (14.0-18.0); Immature Granulocytes # (auto) 0.01 K/uL (0.00-0.02); Immature Granulocytes % (auto) 0.2 %; Lymphocytes # (auto) 1.26 K/uL (1.2-3.4); Lymphocytes % (auto) 28.8 %; Mean Corpuscular Hemoglobin 30.4 pg (25-34); Mean Corpuscular Hgb Conc 34.5 g/dL (32-36); Mean Corpuscular Volume 88.1 fL (80-100); Mean Platelet Volume 10.1 fL (7.4-10.4); Monocytes # (auto) 0.43 K/uL (0.11-0.59); Monocytes % (auto) 9.8 %; Neutrophils # (auto) 2.46 K/uL (1.4-6.5); Neutrophils % (auto) 56.2 %; Platelet Count 284 K/uL (130-400); RDW Coefficient of Variation 14.5 % (11.5-14.5); Red Blood Count 4.47 M/uL (4.7-6.1); White Blood Count 4.38 K/uL (4.8-10.8)
[2020-10-06 06:39] LABS: BUN Creatinine Ratio 14.8 (10-20); Calcium 8.9 mg/dl (8.5-10.1); Creatinine Clr Calc Pharmacy 58.9 ml/min; Est GFR (African American) 63.3 ml/min; Est GFR (Non-African American) 54.6 ml/min; Potassium 3.5 mmol/L (3.5-5.1)
[2020-10-06 07:42] LABS: Amphetamine Urine, Confirm 859 ng/mL (<250); Methamphetamine, Ur Confirm 4180 ng/mL (<250)
[2020-10-06] MEDS: DOXAZOSIN MESYLATE 1 MG TAB PO SCH (08:02)
[2020-10-06] MEDS: BENZTROPINE MESYLATE 0.5 MG TAB PO SCH ×2 (08:02→21:22)
[2020-10-06] MEDS: FOLIC ACID 1 MG TAB PO SCH (08:02)
[2020-10-06] MEDS: levETIRAcetam 250 MG TAB PO SCH ×2 (08:02→21:22)
[2020-10-06] MEDS: hydroCHLOROthiazide 25 MG TAB PO SCH (08:02)
[2020-10-06] MEDS: METOPROLOL SUCC 25MG EXT REL TAB PO SCH (08:02)
[2020-10-06] MEDS: PANTOprazole 40 MG TAB PO SCH (08:02)
[2020-10-06] MEDS: DULoxetine HCL 30 MG CAP PO SCH ×2 (08:02→21:22)
[2020-10-06] MEDS: ARIPiprazole 10 MG TAB PO SCH (08:02)
[2020-10-06] MEDS: DICLOFENAC SOD 1% GEL 100 GM TUBE EXT SCH ×4 (08:03→21:22)
[2020-10-06] MEDS: QUEtiapine FUMARATE 25 MG TABLET PO SCH ×2 (08:03→21:22)
[2020-10-06] MEDS: TOPIRAMATE 100 MG TAB PO SCH ×2 (08:03→21:22)
[2020-10-06] MEDS: PRAZOSIN HCL 1 MG CAP PO SCH (08:03)
[2020-10-06] MEDS: TAMSULOSIN HCL 0.4 MG CAP PO SCH (08:03)
[2020-10-06] MEDS: ATORVASTATIN 40 MG TAB PO SCH (08:40)
--- NOTE | 2020-10-06 11:11 | Hospitalist Progress Note ---
Date of Service October 06, 2020 Assessment & Plan (1) Osteomyelitis: Nakul Ram is a 54-year-old male with PMHx PTSD, Seizure Disorder, Protein C Deficiency on warfarin, RUDDY, BPH, Hypercholesterolemia, HTN, that presented as a transfer from [facility] for outpatient failure of treatment of L hand 4th digit cellulitis, now with osteomyelitis. Osteomyelitis of L hand 4th digit: -XR of hand and finger with lytic lesions concerning for and consistent with osteomyelitis -Started initially on IV Levaquin and Daptomycin on admission -Called and discussed with patient's ID physician at [place] (Dr. David: [phone]) who recommended switching patient to Vancomycin 15-20 trough in addition to Ceftriaxone 2g QD. Further recommendations from Dr. David as below which he recommended upon discharge: -Continue Vancomycin with goal of 15-20 trough -Continue Rocephin 2g daily -Continue IV antibiotics for 6 total weeks, starting from admission of 10/03/20 -Start Keflex 500mg PO q6h upon completion of 6 weeks of IV antibiotics, discontinue pending discussion with ID Dr. David -Weekly CBC, CMP, Vancomycin trough -Follow up with Dr. David in 2 weeks after discharge -Ortho Consulted -No plan for surgical intervention at this time, rec. continuing IV antibiotics -Case management assisting with [place] services for continued infusions -will start topical Voltaren for continued abdominal pain Protein C Deficiency: -With history of PE -Chronically on Warfarin 10mg QD -INR 1.7 today after extra 2.5 mg Warfarin on 10/05 Seizure Disorder: -Continue home Keppra and Topamax PTSD: -Continue home Prazosin -Continue Abilify -Continue Seroquel HTN: -Continue HCTZ and Metoprolol Hypercholesterolemia: -Will hold Atorvastatin at this time due to elevated CPK RUDDY: -Continue Cymbalta BPH: -Continue Flomax DVT: Warfarin Code: full Admission and Anticipated Discharge Date Admission Date: October 03, 2020 Supervising Physician Co-Signing Physician Notes I personally examined the patient and verified all richardson points of history and exam, discussed case, and agree with decision making with Dr Olivia Voltaren gel seems to be helping with finger pain some. Continues to wonder/worry about how much range of motion he will recover. Vitals noted, no distress. His finger is quite swollen a few sutures appear to be in place, there is no tracking erythema or expressible exudate. Essentially examines identical to beforeswollen, restricted range of motion, edema without much of any erythema, minimal to the worst moderate tenderness but mostly to deep palpation. Finger osteomyelitiscontinue IV antibiotics, case management is working on discharge planning. Orthopedic and infectious disease input appreciated. Continue diclofenac gel, ongoing education/support. Otherwise as above Subjective Doing okay today, his pain has been improved with topical Voltaren. He was concerned about the size of his finger. His questions were answered. Review of Systems Constitutional: Constitutional: denies fevers Physical Exam Constitutional: WD/WN, vitals as above Eyes: PERRL, conjunctivae normal, anicteric sclerae ENMT: external ear and nose normal, oropharynx normal Neck: normal visual inspection Respiratory: normal respiratory effort, lungs clear to auscultation Cardiovascular: RRR, no murmur, no edema Gastrointestinal (Abdomen): Inspection/Auscultation: abdomen normal to inspection Musculoskeletal: - left ring finger approx. twice the size of contralateral s mariah, tender to palpation of the PIP joint Results & Data Results & Data ([facility]) Vital Signs (Past 12 Hours) Vital Signs Temp Pulse Resp BP Pulse Ox 10/06/20 07:28 36.9 C 69 18 145/75 H 99 CBC Results Results Complete Blood Count Results: RBC 4.47 M/uL (4.7-6.1) L 10/06/20 WBC 4.38 K/uL (4.8-10.8) L 10/06/20 Hgb 13.6 g/dL (14.0-18.0) L 10/06/20 Hct 39.4 % (42-52) L 10/06/20 Plt Count 284 K/uL (130-400) 10/06/20 Chemistry (BMP) Results BMP Results: Sodium 142 mmol/L (136-145) 10/06/20 Potassium 3.5 mmol/L (3.5-5.1) 10/06/20 Chloride 112 mmol/L (98-107) H 10/06/20 BUN 21 mg/dl (7-18) H 10/06/20 Creatinine 1.45 mg/dl (0.6-1.4) H 10/06/20 Glucose 96 mg/dl (70-99) 06/26/21 Resident Activity Tracking Resident Involvement: Resident Care Provided Care Provided: Adult Hospital Medicine (1) Osteomyelitis Laterality: left Osteomyelitis location: hand Osteomyelitis type: unspecified type Qualified Code(s): M86.9 - Osteomyelitis, unspecified
[2020-10-06 11:33] LABS: INR 1.7 (0.9-1.1); Prothrombin Time 16.4 Seconds (9.0-12.0)
--- NOTE | 2020-10-06 15:21 | Billing Data ---
Date of Service October 06, 2020 Coding Level of Care Code 51824 Subseq Hosp Care Lvl 2
[2020-10-06] MEDS: WARFARIN SOD 10 MG TAB PO SCH (16:53)
[2020-10-06] MEDS: NICOTINE 7 MG/24 HR TDSY TD SCH (17:50)
[2020-10-06] MEDS: cefTRIAXone SODIUM 2,000 MG in DEXTROSE 5% 50 ML IV SCH (19:09)
[2020-10-07] MEDS ORDERED: VANCOMYCIN TROUGH ONE (04:30)
[2020-10-07 04:48] LABS: Basophils # (auto) 0.01 K/uL (0-0.2); Basophils % (auto) 0.2 %; Eosinophils # (auto) 0.26 K/uL (0-0.5); Eosinophils % (auto) 4.7 %; Hematocrit (blood only) 37.9 % (42-52); Hemoglobin 13.2 g/dL (14.0-18.0); Immature Granulocytes # (auto) 0.01 K/uL (0.00-0.02); Immature Granulocytes % (auto) 0.2 %; Lymphocytes # (auto) 1.54 K/uL (1.2-3.4); Lymphocytes % (auto) 27.8 %; Mean Corpuscular Hemoglobin 30.2 pg (25-34); Mean Corpuscular Hgb Conc 34.8 g/dL (32-36); Mean Corpuscular Volume 86.7 fL (80-100); Mean Platelet Volume 9.8 fL (7.4-10.4); Neutrophils # (auto) 3.22 K/uL (1.4-6.5); Neutrophils % (auto) 58.1 %; Platelet Count 248 K/uL (130-400); RDW Coefficient of Variation 14.5 % (11.5-14.5); Red Blood Count 4.37 M/uL (4.7-6.1); White Blood Count 5.54 K/uL (4.8-10.8)
[2020-10-07 04:57] LABS: INR 1.7 (0.9-1.1); Prothrombin Time 16.7 Seconds (9.0-12.0)
[2020-10-07 05:07] LABS: BUN Creatinine Ratio 20.5 (10-20); Calcium 8.5 mg/dl (8.5-10.1); Creatinine Clr Calc Pharmacy 63.3 ml/min; Est GFR (Non-African American) 59.5 ml/min; Potassium 3.2 mmol/L (3.5-5.1)
[2020-10-07] MEDS: VANCOMYCIN HCL 1,000 MG in SODIUM CHLORIDE 0.9% 250 ML IV SCH ×2 (05:19→16:47)
[2020-10-07] MEDS ORDERED: POTASSIUM CHLORIDE 20 MEQ/15 ML UDC PO STA (07:58)
--- NOTE | 2020-10-07 07:58 | Pharmacy Report ---
Pharmacy Abx Dose Short Note - Date of Service October 07, 2020 - Assessment & Plan Assessment 54 year old M receiving IV vancomycin for treatment of osteomyelitis of L hand 4th digit. Day # 5 of 6 week total of antimicrobial therapy. Renal function remains stable. No plan for surgical intervention - plan to continue vancomycin + ceftriaxone for a total of 6 weeks of therapy starting from 10/03/20 per ID at [place]. Vancomycin trough level drawn appropriately this AM and was ~ an 11hr level. Plan Vancomycin * Trough level of 18.5mcg/mL is therapeutic and is a steady state level * Continue dose of 1000mg IV every 12 hours * Goal trough level for osteomyelitis : 15-20 mcg/mL * Will obtain another trough in 3-5 days or sooner if renal function indicates. Pharmacy will continue to follow and will adjust dose/frequency as necessary. Thank you.
[2020-10-07] MEDS: PRAZOSIN HCL 1 MG CAP PO SCH (08:48)
[2020-10-07] MEDS: PANTOprazole 40 MG TAB PO SCH (08:49)
[2020-10-07] MEDS: TOPIRAMATE 100 MG TAB PO SCH ×2 (08:49→20:48)
[2020-10-07] MEDS: TAMSULOSIN HCL 0.4 MG CAP PO SCH (08:49)
[2020-10-07] MEDS: DOXAZOSIN MESYLATE 1 MG TAB PO SCH (08:49)
[2020-10-07] MEDS: hydroCHLOROthiazide 25 MG TAB PO SCH (08:50)
[2020-10-07] MEDS: levETIRAcetam 250 MG TAB PO SCH ×2 (08:50→20:48)
[2020-10-07] MEDS: DULoxetine HCL 30 MG CAP PO SCH ×2 (08:50→20:48)
[2020-10-07] MEDS: ARIPiprazole 10 MG TAB PO SCH (08:50)
[2020-10-07] MEDS: QUEtiapine FUMARATE 25 MG TABLET PO SCH ×2 (08:51→20:49)
[2020-10-07] MEDS: ATORVASTATIN 40 MG TAB PO SCH (08:51)
[2020-10-07] MEDS: FOLIC ACID 1 MG TAB PO SCH (08:51)
[2020-10-07] MEDS: METOPROLOL SUCC 25MG EXT REL TAB PO SCH (08:51)
[2020-10-07] MEDS: BENZTROPINE MESYLATE 0.5 MG TAB PO SCH ×2 (08:52→20:49)
[2020-10-07] MEDS: DICLOFENAC SOD 1% GEL 100 GM TUBE EXT SCH ×4 (08:52→20:49)
[2020-10-07] MEDS: NICOTINE 7 MG/24 HR TDSY TD SCH (09:26)
--- NOTE | 2020-10-07 10:20 | Hospitalist Progress Note ---
Date of Service October 07, 2020 Assessment & Plan (1) Osteomyelitis: 54-year-old M with PMHx. PTSD, seizure disorder, protein C Deficiency on warfarin, RUDDY, BPH, Hypercholesterolemia, HTN, that presented as a transfer from [facility] for outpatient failure of treatment of L hand 4th digit cellulitis, now with osteomyelitis. Osteomyelitis of L hand 4th digit: -XR of hand and finger with lytic lesions concerning for and consistent with osteomyelitis -Started initially on IV Levaquin and Daptomycin on admission -Called and discussed with patient's ID physician at [place] (Dr. David: [phone]) who recommended switching patient to Vancomycin 15-20 trough in addition to Ceftriaxone 2g QD. Further recommendations from Dr. David as below which he recommended upon discharge: -Continue Vancomycin with goal of 15-20 trough -Continue Rocephin 2g daily -Continue IV antibiotics for 6 total weeks, starting from admission of 10/03/20 -Start Keflex 500mg PO q6h upon completion of 6 weeks of IV antibiotics, discontinue pending discussion with ID Dr. David -Weekly CBC, CMP, Vancomycin trough -Follow up with Dr. David in 2 weeks after discharge -Ortho Consulted -No plan for surgical intervention at this time, rec. continuing IV antibiotics -Case management assisting with [place] services for continued infusions -will start topical Voltaren for continued abdominal pain Protein C Deficiency: -With history of PE -Chronically on Warfarin 10mg QD -INR 1.7 today after extra 2.5 mg Warfarin on 10/05 Seizure Disorder: -Continue home Keppra and Topamax PTSD: -Continue home Prazosin -Continue Abilify -Continue Seroquel HTN: -Continue HCTZ and Metoprolol Hypercholesterolemia: -Will hold Atorvastatin at this time due to elevated CPK RUDDY: -Continue Cymbalta BPH: -Continue Flomax DVT: Warfarin Code: full Admission and Anticipated Discharge Date Admission Date: October 03, 2020 Supervising Physician Co-Signing Physician Notes I personally examined the patient and verified all richardson points of history and exam, discussed case, and agree with decision making with Dr Olivia Sleeping comfortably. Case discussed with Dr. Olivia, patient has no acute issues. Still waiting on placement. Vitals noted, sleeping comfortably no distress. Breathing unlabored no accessory muscle use. Finger osteomyelitiscontinue IV antibiotics, case management is working on discharge planning. Orthopedic and infectious disease input appreciated. Continue diclofenac gel Otherwise as above Subjective Nakul Ram is doing good this morning. He had just woken up and had not eaten his breakfast yet. He had gone out to the [place] yesterday and was planning on doing this again today. His pain was 7-8/10. Review of Systems Review of Systems: Constitutional: denies fevers, chills, Cardiac: denies chest pain, palpitations, presyncope, syncope GI: denies nausea, vomiting, constipation, diarrhea Pulm.: denies cough, shortness of breath : denies urinary frequency, urgency, dysuria Physical Exam Constitutional: WD/WN, vitals as above Eyes: PERRL, conjunctivae normal, anicteric sclerae ENMT: external ear and nose normal, oropharynx normal Neck: normal visual inspection Respiratory: normal respiratory effort, lungs clear to auscultation Cardiovascular: RRR, no murmur, no edema Gastrointestinal (Abdomen): Inspection/Auscultation: abdomen normal to inspection Musculoskeletal: - left ring finger, approx. 2 times contralateral finger; appears slightly less edematous - limited ROM on flexion/extension of the finger at the MCP, PIP and DIP joints - no warmth or fluctuance Results & Data Results & Data ([facility]) Vital Signs (Past 12 Hours) Vital Signs Temp Pulse Resp BP Pulse Ox 10/07/20 07:46 36.8 C 10/07/20 07:01 67 16 145/73 H 99 10/06/20 22:51 36.7 C 74 16 152/89 H 99 CBC Results Results Complete Blood Count Results: RBC 4.37 M/uL (4.7-6.1) L 10/07/20 WBC 5.54 K/uL (4.8-10.8) 10/07/20 Hgb 13.2 g/dL (14.0-18.0) L 10/07/20 Hct 37.9 % (42-52) L 10/07/20 Plt Count 248 K/uL (130-400) 10/07/20 Chemistry (BMP) Results BMP Results: Sodium 141 mmol/L (136-145) 10/07/20 Potassium 3.2 mmol/L (3.5-5.1) L 10/07/20 Chloride 112 mmol/L (98-107) H 10/07/20 BUN 28 mg/dl (7-18) H 10/07/20 Creatinine 1.35 mg/dl (0.6-1.4) 10/07/20 Glucose 113 mg/dl (70-99) H 10/07/20 Resident Activity Tracking Resident Involvement: Resident Care Provided Care Provided: [facility] (1) Osteomyelitis Laterality: left Osteomyelitis location: hand Osteomyelitis type: unspecified type Qualified Code(s): M86.9 - Osteomyelitis, unspecified
--- NOTE | 2020-10-07 15:40 | Billing Data ---
Date of Service October 07, 2020 Coding Level of Care Code 60738 Subseq Hosp Care Lvl 1
[2020-10-07] MEDS: WARFARIN SOD 10 MG TAB PO SCH (16:48)
[2020-10-07] MEDS: cefTRIAXone SODIUM 2,000 MG in DEXTROSE 5% 50 ML IV SCH (19:25)
[2020-10-08] MEDS: VANCOMYCIN HCL 1,000 MG in SODIUM CHLORIDE 0.9% 250 ML IV SCH ×2 (05:45→18:48)
[2020-10-08 07:58] LABS: Basophils # (auto) 0.01 K/uL (0-0.2); Basophils % (auto) 0.2 %; Eosinophils % (auto) 4.4 %; Hematocrit (blood only) 38.5 % (42-52); Hemoglobin 13.2 g/dL (14.0-18.0); Immature Granulocytes # (auto) 0.01 K/uL (0.00-0.02); Immature Granulocytes % (auto) 0.2 %; Lymphocytes # (auto) 1.31 K/uL (1.2-3.4); Lymphocytes % (auto) 28.6 %; Mean Corpuscular Hemoglobin 30.1 pg (25-34); Mean Corpuscular Hgb Conc 34.3 g/dL (32-36); Mean Corpuscular Volume 87.7 fL (80-100); Mean Platelet Volume 10.1 fL (7.4-10.4); Monocytes # (auto) 0.46 K/uL (0.11-0.59); Neutrophils # (auto) 2.59 K/uL (1.4-6.5); Neutrophils % (auto) 56.6 %; Platelet Count 231 K/uL (130-400); RDW Coefficient of Variation 14.6 % (11.5-14.5); RDW Standard Deviation 47.2 fL (36.4-46.3); Red Blood Count 4.39 M/uL (4.7-6.1); White Blood Count 4.58 K/uL (4.8-10.8)
[2020-10-08 08:04] LABS: INR 1.8 (0.9-1.1); Prothrombin Time 17.7 Seconds (9.0-12.0)
[2020-10-08 08:27] LABS: Calcium 8.6 mg/dl (8.5-10.1); Creatinine Clr Calc Pharmacy 61.5 ml/min; Est GFR (African American) 66.6 ml/min; Est GFR (Non-African American) 57.5 ml/min; Potassium 3.4 mmol/L (3.5-5.1)
[2020-10-08] MEDS ORDERED: POTASSIUM CHLORIDE CRTAB 20 MEQ TABCR PO STA ×2 (08:37→09:14)
[2020-10-08] MEDS: ARIPiprazole 10 MG TAB PO SCH (08:42)
[2020-10-08] MEDS: ATORVASTATIN 40 MG TAB PO SCH (08:42)
[2020-10-08] MEDS: BENZTROPINE MESYLATE 0.5 MG TAB PO SCH ×2 (08:42→20:21)
[2020-10-08] MEDS: METOPROLOL SUCC 25MG EXT REL TAB PO SCH (08:43)
[2020-10-08] MEDS: levETIRAcetam 250 MG TAB PO SCH ×2 (08:43→20:21)
[2020-10-08] MEDS: DOXAZOSIN MESYLATE 1 MG TAB PO SCH (08:43)
[2020-10-08] MEDS: hydroCHLOROthiazide 25 MG TAB PO SCH (08:43)
[2020-10-08] MEDS: DULoxetine HCL 30 MG CAP PO SCH ×2 (08:43→20:21)
[2020-10-08] MEDS: FOLIC ACID 1 MG TAB PO SCH (08:43)
[2020-10-08] MEDS: QUEtiapine FUMARATE 25 MG TABLET PO SCH ×2 (08:43→20:21)
[2020-10-08] MEDS: PANTOprazole 40 MG TAB PO SCH (08:44)
[2020-10-08] MEDS: PRAZOSIN HCL 1 MG CAP PO SCH (08:44)
[2020-10-08] MEDS: NICOTINE 7 MG/24 HR TDSY TD SCH (08:45)
[2020-10-08] MEDS: TAMSULOSIN HCL 0.4 MG CAP PO SCH (08:45)
[2020-10-08] MEDS: TOPIRAMATE 100 MG TAB PO SCH ×2 (08:45→20:21)
[2020-10-08] MEDS: DICLOFENAC SOD 1% GEL 100 GM TUBE EXT SCH ×4 (08:47→20:22)
--- NOTE | 2020-10-08 12:39 | Hospitalist Progress Note ---
Date of Service October 08, 2020 Assessment & Plan (1) Osteomyelitis: Mr. Ram is a 54-year-old M with PMHx significant for PTSD, seizure disorder, protein C Deficiency (on warfarin), RUDDY, BPH, Hypercholesterolemia and HTN, who presented as a transfer from [facility] on 10/03/2020 for outpatient failure of treatment of L hand 4th digit cellulitis, now with osteomyelitis. Osteomyelitis of L hand 4th digit - XR of hand and finger with lytic lesions concerning for and consistent with osteomyelitis - Started initially on IV Levaquin and Daptomycin on admission - Called and discussed with patient's ID physician at [place] (Dr. David: [phone]) who recommended switching patient to Vancomycin 15-20 trough in addition to Ceftriaxone 2g IV daily. Further recommendations from Dr. David as below which he recommended upon discharge: - Continue Vancomycin with goal of 15-20 trough - Continue Rocephin 2g IV daily - Continue IV antibiotics for 6 total weeks, starting from admission of 10/03/20 - Start Keflex 500mg PO q6h upon completion of 6 weeks of IV antibiotics, discontinue pending discussion with ID Dr. David - Weekly CBC, CMP, Vancomycin trough - Follow up with Dr. David in 2 weeks after discharge - Ortho Consulted - No plan for surgical intervention at this time, rec. continuing IV antibiotics - PICC line placed today for prolonged IV abx - Case management assisting with [place] services for continued infusions Protein C Deficiency - With history of PE - Chronically on Warfarin 10mg PO daily - INR 1.8 today after extra 2.5 mg Warfarin on 10/05 - Additional Warfarin 2.5mg PO x1 today Seizure Disorder - Continue home Levetiracetam 750mg PO BID and Topiramate 200mg PO BID PTSD - Continue home Prazosin 5mg PO daily, Aripiprazole 20mg PO daily, Quetiapine 50mg PO BID HTN - Continue HCTZ 25mg PO daily and Toprol XL 25mg PO daily Hypercholesterolemia - Will hold Atorvastatin at this time due to elevated CPK RUDDY - Continue Duloxetine 30mg PO BID BPH - Continue Tamsulosin 0.4mg PO daily FEN/GI: heart-healthy DVT ppx: Warfarin Code: full code Dispo: med/surg, CM on board - dispo to [facility] planned for tomorrow at 0900 Admission and Anticipated Discharge Date Admission Date: October 03, 2020 Supervising Physician Co-Signing Physician Notes Resident Physician Supervision Note: I independently interviewed and examined the patient and verified the richardson history and physical, reviewed labs and image studies and agree with resident Dr. Kovacs findings and care plan. Subjective No acute events overnight. Reports that left ring finger is swollen but not painful. Eating/drinking well. No concerns. Review of Systems Review of Systems: Denies fever/chills, chest pain, palpitations, cough, SOB, N/V, abdominal pain, rash. Physical Exam Physical Exam: General: A&Ox3. NAD. Cooperative. HEENT: Atraumatic, normocephalic. Pulm: CTAB A&P. -wheezes, -rales, -rhonchi. Symmetrical chest rise. No increase work of breathing. No respiratory distress. Cardiac: RRR, -mrg. Radial pulses intact and symmetrical. Abdominal: soft, non-tender, non-distended, BS x 4 Left hand: left 4th finger is markedly swollen over proximal phalanges without erythema, TTP, discharge, red streaking. Results & Data Results & Data ([facility]) Vital Signs (Past 12 Hours) Vital Signs Temp Pulse Resp BP Pulse Ox 10/08/20 07:34 36.6 C 63 16 138/78 98 Resident Activity Tracking Resident Involvement: Resident Care Provided Care Provided: Adult Hospital Medicine (1) Osteomyelitis Laterality: left Osteomyelitis location: hand Osteomyelitis type: unspecified type Qualified Code(s): M86.9 - Osteomyelitis, unspecified
[2020-10-08] MEDS: WARFARIN SOD 10 MG TAB PO SCH (15:18)
[2020-10-08] MEDS ORDERED: WARFARIN SOD 2.5 MG TAB PO ONE (16:00)
[2020-10-08] MEDS: cefTRIAXone SODIUM 2,000 MG in DEXTROSE 5% 50 ML IV SCH (21:23)
[2020-10-09] MEDS: VANCOMYCIN HCL 1,000 MG in SODIUM CHLORIDE 0.9% 250 ML IV SCH (05:45)
[2020-10-09 05:59] LABS: Basophils # (auto) 0.01 K/uL (0-0.2); Basophils % (auto) 0.2 %; Eosinophils # (auto) 0.25 K/uL (0-0.5); Eosinophils % (auto) 5.2 %; Hemoglobin 12.8 g/dL (14.0-18.0); Immature Granulocytes # (auto) 0.02 K/uL (0.00-0.02); Immature Granulocytes % (auto) 0.4 %; Lymphocytes # (auto) 1.35 K/uL (1.2-3.4); Lymphocytes % (auto) 28.1 %; Mean Corpuscular Hemoglobin 30.4 pg (25-34); Mean Corpuscular Hgb Conc 34.6 g/dL (32-36); Mean Corpuscular Volume 87.9 fL (80-100); Mean Platelet Volume 9.7 fL (7.4-10.4); Monocytes # (auto) 0.52 K/uL (0.11-0.59); Monocytes % (auto) 10.8 %; Neutrophils # (auto) 2.66 K/uL (1.4-6.5); Neutrophils % (auto) 55.3 %; Platelet Count 220 K/uL (130-400); RDW Coefficient of Variation 14.7 % (11.5-14.5); RDW Standard Deviation 47.4 fL (36.4-46.3); Red Blood Count 4.21 M/uL (4.7-6.1); White Blood Count 4.81 K/uL (4.8-10.8)
[2020-10-09 06:09] LABS: INR 2.2 (0.9-1.1)
[2020-10-09 06:34] LABS: BUN Creatinine Ratio 21.2 (10-20); Calcium 8.4 mg/dl (8.5-10.1); Creatinine Clr Calc Pharmacy 66.2 ml/min; Est GFR (African American) 72.9 ml/min; Est GFR (Non-African American) 62.9 ml/min; Potassium 3.3 mmol/L (3.5-5.1)
[2020-10-09] MEDS ORDERED: POTASSIUM CHLORIDE CRTAB 20 MEQ TABCR PO STA (07:34)
--- NOTE | 2020-10-09 07:49 | Discharge Summary ---
Date of Service October 09, 2020 Admission HPI Per Admitting Provider Mr. Ram is a 54 yo M who was referred to the [facility] ED for failed outpatient management of an infection of the left ring finger. In July 2020 while in rehab for substance abuse (injection drug use, meth and cocaine), Mr. Ram slipped on the bathroom floor and broke his left ring finger in an attempt to brace his fall. He underwent surgical repair by Dr. Jacinto at [facility] on 07/13/20. He was later placed in a hard cast because his joint was exposed to too much mobility at this first post-operative visit. Two weeks ago, Mr. Ram noted increased swelling and discomfort of the finger - he was started on cl indamycin 7-10 days ago for a wound infection. Despite being on the clinda, the finger has continued to remain swollen and painful. He has seen an ID specialist at [facility] who referred him here for Iv antibiotics due to a suspicion for osteomyelitis - he recommend Levaquin and Vancomycin. No records of imaging of the left ring finger from [facility] were received. Patient's is present at bedside and provides the following history: he has struggled with IV drug use for nearly 30 years. He has been talking about going back rehab in an effort to get clean. She can be reached at [phone]. He is a has follows with the [facility] system, but his PCP is with [facility]. He is a current tobacco smoker. In the ED, he was afebrile with a normal HR. His WBC was normal. Blood cultures were drawn. ESR not elevated. K low at 3.1. GFR at 73. He was started on IV Levaquin and Daptomycin. Admission Exam Per Admitting Provider Constitutional: WD/WN, vitals as above no acute distress Eyes: + anicteric sclerae ENMT: external ear and nose normal, oropharynx normal Neck: normal visual inspection and trachea midline Respiratory: normal respiratory effort, lungs clear to auscultation no cough Cardiovascular: RRR, no murmur, no edema Heart Sounds: normal S1 and normal S2 Gastrointestinal (Abdomen): normal bowel sounds, soft, nontender, no hepatosplenomegaly Musculoskeletal: + left ring finger is swollen, not erythematous. Surgical incision present, No drainage. flexed at PIP joint Skin: no rashes, warm and dry Principal Diagnosis Left 4th Digit Osteomyelitis Discharge Exam General: A&Ox3. NAD. Cooperative. HEENT: Atraumatic, normocephalic. Pulm: CTAB A&P. -wheezes, -rales, -rhonchi. Symmetrical chest rise. No increase work of breathing. No respiratory distress. Cardiac: RRR, -mrg. Radial pulses intact and symmetrical. Abdominal: soft, non-tender, non-distended, BS x 4 Left hand: left 4th finger is markedly swollen over proximal phalanges without erythema, TTP, discharge, red streaking. Discharge Data Allergies Allergy/AdvReac Type Severity Reaction Status Date / Time aspirin Allergy Unknown Verified 10/03/20 00:46 Cephalosporins Allergy Rash Verified 10/03/20 00:46 codeine Allergy Rash Verified 10/03/20 00:46 Penicillins Allergy Rash Verified 10/03/20 00:46 Consultations 10/03/20 00:15 ED Decision to Admit Stat 10/03/20 02:59 Consult Orthopedic Surgery Routine Hospital Course (1) Osteomyelitis: Mr. Ram is a 54-year-old M with PMHx significant for PTSD, seizure disorder, protein C Deficiency (on warfarin), RUDDY, BPH, Hypercholesterolemia and HTN, who presented as a transfer from [facility] on 10/03/2020 for outpatient failure of treatment of L hand 4th digit cellulitis, now with osteomyelitis. Osteomyelitis of L hand 4th digit - XR of hand and finger with lytic lesions concerning for and consistent with osteomyelitis - Started initially on IV Levaquin and Daptomycin on admission - Called and discussed with patient's ID physician at [facility] (Dr. David: [phone]) who recommended switching patient to Vancomycin 15-20 trough in addition to Ceftriaxone 2g IV daily. Further recommendations from Dr. David as below which he recommended upon discharge: - Continue Vancomycin 1000mg IV BID, with goal of 15-20 trough - Continue Rocephin 2g IV daily - Continue IV antibiotics for 6 total weeks, starting from admission of 10/03/20 - Start Keflex 500mg PO q6h upon completion of 6 weeks of IV antibiotics, discontinue pending discussion with ID Dr. David - Weekly CBC, CMP, Vancomycin trough - Follow up with Dr. David in 2 weeks after discharge -Ortho Consulted - No plan for surgical intervention at this time, rec. continuing IV antibiotics - PICC line placed on 10/08 for prolonged IV abx Protein C Deficiency - With history of PE - Chronically on Warfarin 10mg PO daily - INR 1.8 on 10/08 after extra 2.5 mg Warfarin on 10/05 - Additional Warfarin 2.5mg PO x1 on 10/08 - Continue with Warfarin 10mg PO daily, with INR goal 2-3 Seizure Disorder - Continue home Levetiracetam 750mg PO BID and Topiramate 200mg PO BID PTSD - Continue home Prazosin 5mg PO daily, Aripiprazole 20mg PO daily, Quetiapine 50mg PO BID HTN - Continue HCTZ 25mg PO daily and Toprol XL 25mg PO daily Hypercholesterolemia - Resume home Atorvastatin on discharge RUDDY - Continue Duloxetine 30mg PO BID BPH - Continue Tamsulosin 0.4mg PO daily Total Time Total Time Spent Total Time Spent (In Minutes): 45 minutes Total Time Includes: Examination of the Patient, Discharge Planning, Medication Reconciliation and Communication With Other Providers Discharge Plan Discharge Items Patient Disposition: Transfer [facility] Reason For Visit: OSTEOMYELITIS Discharge Diagnosis: Left 4th Digit Osteomyelitis Condition on Discharge: Fair Activity: Per Instructions section Non-emergency contact: Primary Care Provider and Specialist Call non-emergency contact if: you have any medication questions, your symptoms worsen, your pain is not controlled, you have a fever, your wound has increased redness, your wound has increased drainage and your wound pain has increased Follow-up/Referrals: Sacha Storm [Primary Care Provider] - Diet: Heart Healthy Addtl Attending Provider Instructions: Mr. Ram is a 54-year-old M with PMHx significant for PTSD, seizure disorder, protein C Deficiency (on warfarin), RUDDY, BPH, Hypercholesterolemia and HTN, who presented as a transfer from [facility] on 10/03/2020 for outpatient failure of treatment of L hand 4th digit cellulitis, now with osteomyelitis. Osteomyelitis of L hand 4th digit - XR of hand and finger with lytic lesions concerning for and consistent with osteomyelitis - Started initially on IV Levaquin and Daptomycin on admission - Called and discussed with patient's ID physician at [facility] (Dr. David: [phone]) who recommended switching patient to Vancomycin 15-20 trough in addition to Ceftriaxone 2g IV daily. Further recommendations from Dr. David as below which he recommended upon discharge: - Continue Vancomycin 1000mg IV BID, with goal of 15-20 trough - Continue Rocephin 2g IV daily - Continue IV antibiotics for 6 total weeks, starting from admission of 10/03/20 - Start Keflex 500mg PO q6h upon completion of 6 weeks of IV antibiotics, discontinue pending discussion with ID Dr. David - Weekly CBC, CMP, Vancomycin trough - Follow up with Dr. David in 2 weeks after discharge -Ortho Consulted - No plan for surgical intervention at this time, rec. continuing IV antibiotics - PICC line placed on 10/08 for prolonged IV abx Protein C Deficiency - With history of PE - Chronically on Warfarin 10mg PO daily - INR 1.8 on 10/08 after extra 2.5 mg Warfarin on 10/05 - Additional Warfarin 2.5mg PO x1 on 10/08 - Continue with Warfarin 10mg PO daily, with INR goal 2-3 Seizure Disorder - Continue home Levetiracetam 750mg PO BID and Topiramate 200mg PO BID PTSD - Continue home Prazosin 5mg PO daily, Aripiprazole 20mg PO daily, Quetiapine 50mg PO BID HTN - Continue HCTZ 25mg PO daily and Toprol XL 25mg PO daily Hypercholesterolemia - Resume home Atorvastatin on discharge RUDDY - Continue Duloxetine 30mg PO BID BPH - Continue Tamsulosin 0.4mg PO daily Pending Studies at Discharge: No Stand-Alone Forms: My [facility] Skilled Items Patient informed of condition?: Yes DNR: No Discharge Level of Care: Other Communicable Disease: Yes Discharge Prognosis: Stable Lines: PICC Urinary Catheter: No Medications and DC Order Prescriptions: New vancomycin 1,000 mg recon soln 1,000 mg IV BID Qty: 1 RF: 0 ceftriaxone 2 gram recon soln 2 g IM DAILY Qty: 10 RF: 0 Continued atorvastatin 40 mg tablet 40 mg PO DAILY RF: 0 doxazosin [Cardura] 1 mg tablet 1 mg PO DAILY RF: 0 pantoprazole 40 mg tablet,delayed release (DR/EC) 40 mg PO DAILY RF: 0 folic acid 1 mg tablet 1 mg PO DAILY RF: 0 aripiprazole 20 mg tablet 20 mg PO DAILY RF: 0 prazosin 5 mg capsule 5 mg PO DAILY RF: 0 levetiracetam 750 mg tablet 750 mg PO BID RF: 0 warfarin 10 mg tablet 10 mg PO DAILY RF: 0 tamsulosin 0.4 mg capsule 0.4 mg PO DAILY RF: 0 topiramate 200 mg tablet 200 mg PO BID RF: 0 hydrochlorothiazide 25 mg tablet 25 mg PO DAILY RF: 0 metoprolol succinate 25 mg tablet extended release 24 hr 25 mg PO DAILY RF: 0 albuterol sulfate 90 mcg/actuation HFA aerosol inhaler 2 puff INHALATION Q4 PRN (Reason: Wheezing) RF: 0 melatonin 1 mg Tablet 1 mg PO HS RF: 0 quetiapine 50 mg tablet 50 mg PO BID RF: 0 melatonin 5 mg Tablet 5 mg PO HS RF: 0 benztropine 0.5 mg tablet 0.5 mg PO BID RF: 0 epinephrine [EpiPen] 0.3 mg/0.3 mL Auto-Injector 0.3 mg IM UD PRN (Reason: Anaphylaxis) RF: 0 duloxetine [Cymbalta] 30 mg capsule,delayed release(DR/EC) 30 mg PO BID RF: 0 Discharge Orders: Discharge Order (Routine); Ordered 10/09/20 Ordered By: James Kovacs Admission Data Admit Date/Time: 10/03/20 01:34 Attending Provider: Stacey Hunter Admit Provider: Rebecca Lizama Primary Care Provider: Sacha Storm Other Providers: Quinn Allen ; Dong Jacinto ; [facility] ; Ac Ramos Resident Activity Tracking Resident Involvement: Resident Care Provided Care Provided: Adult Hospital Medicine
[2020-10-09] MEDS: ARIPiprazole 10 MG TAB PO SCH (08:48)
[2020-10-09] MEDS: FOLIC ACID 1 MG TAB PO SCH (08:49)
[2020-10-09] MEDS: BENZTROPINE MESYLATE 0.5 MG TAB PO SCH (08:49)
[2020-10-09] MEDS: DICLOFENAC SOD 1% GEL 100 GM TUBE EXT SCH (08:49)
[2020-10-09] MEDS: ATORVASTATIN 40 MG TAB PO SCH (08:49)
[2020-10-09] MEDS: DOXAZOSIN MESYLATE 1 MG TAB PO SCH (08:49)
[2020-10-09] MEDS: hydroCHLOROthiazide 25 MG TAB PO SCH (08:49)
[2020-10-09] MEDS: DULoxetine HCL 30 MG CAP PO SCH (08:49)
[2020-10-09] MEDS: PANTOprazole 40 MG TAB PO SCH (08:50)
[2020-10-09] MEDS: NICOTINE 7 MG/24 HR TDSY TD SCH (08:50)
[2020-10-09] MEDS: PRAZOSIN HCL 1 MG CAP PO SCH (08:50)
[2020-10-09] MEDS: levETIRAcetam 250 MG TAB PO SCH (08:50)
[2020-10-09] MEDS: METOPROLOL SUCC 25MG EXT REL TAB PO SCH (08:50)
[2020-10-09] MEDS: TAMSULOSIN HCL 0.4 MG CAP PO SCH (08:51)
[2020-10-09] MEDS: TOPIRAMATE 100 MG TAB PO SCH (08:51)
[2020-10-09] MEDS: QUEtiapine FUMARATE 25 MG TABLET PO SCH (08:51)
--- NOTE | 2020-10-22 13:39 | Pharmacy Report ---
Pharmacy Vanc AUC Short Note - Date of Service October 05, 2020 - Assessment & Plan Assessment 54 year old M receiving Vancomycin and Ceftriaxone for treatment of Osteomyelitis of L 4th digit. * Day #3 of antimicrobial therapy. * Cultures with no growth to date. * Infectious Disease recommending Vancomycin with a goal trough of 15-20 mcg/mL. * SCr continues to increase (1.28-1.29-1.40 mg/dL). Plan Vancomycin * AUC/KEN is the preferred PK/PD target for vancomycin * AUC guided dosing is effective and associated with decreased risk of nephrotoxicity compared to traditional trough targets * Trough level of 19 mcg/mL is predicted to overshoot target AUC/KEN of 400-600 mg/L.hr and may be associated with a 23% risk of nephrotoxicity\ * Trough level was drawn prior to the third maintenance dose. Dose prior to trough was given approx. 2 hours late and with SCr continuing to increase, believe a dose reduction is warranted for this patient. * Change to 1000 mg IV every 12 hours * Predicted to achieve goal AUC/KEN of 400-600 mg/L.hr and reduces risk of nephrotoxicity to 15% * Trough level ordered for Thursday, October 07, 2020 prior to the 0500 dose. Pharmacy will continue to follow and will adjust dose/frequency as necessary. Thank you.
== END 2020-10-09 09:41 | DRG 540 ==
LOC: ED 23:37 → SUATTDRO 10-03 01:34 → 3N 10-03 01:34